=== PATIENT | female | born 1935 | race Caucasian/White ===

== ENCOUNTER 2016-12-21 18:41 | Emergency (ER) | payer MEDICARE, OTHER ==
[~2016-12-21] VITALS: Ht 167.6 cm; Wt 66.2 kg
[~2016-12-21 18:41] MED LIST: ALENDRONAT70 MG/75 M PO; AMITRIPTYLINE10 MG PO; ASPIRIN ADULT L81 M5 PO; ATIVAN0.5 M1 PO; BACTRIM DS1 TAB PO; BUSPIRONE10 MG PO; CARAFATE1 PO; COL100 PO; DIO160 PO; DIT5 PO; DOCUSATE CALCI100 MG PO; DOCUSATE SOD100 MG PO; DOCUSATE SODIU100 M1 PO; ELA10 PO; FAMOTIDINE20 MG; FLE10 PO; HYD25 PO; L20 PO; LAC PO; LEVAQUIN750 MG PO; LEVOTHYROXINE0.05 M2 PO; MACROBID100 MG PO; METOPROLOL SR50 MG PO; METOPROLOL TART25 M1 PO; METOPROLOL50 MG PO; MEV20 PO; MOTRIN800 MG; NAP500 PO; NEXIUM2.5 MG/Pa1; OYSCO 500500 MG PO; PENTOXIFYL XR400 MG PO; PRI20 PO; SIMVASTATIN20 MG PO; SYN25 PO; TRE400 PO; TYLENOL EXTRA500 M2; Z PO; ZOC20 PO; ZOFRAN ODT4 MG PO
[2016-12-21 20:35] LABS: CALCIUM 8.6 mg/dL (8.5-10.1); CHLORIDE SERUM 104 mmol/L (98-107); CREATININE SERUM 0.8 mg/dL (0.6-1.0); GLUCOSE SERUM 107 mg/dL (74-106); POTASSIUM SERUM 3.7 mmol/L (3.5-5.1); SODIUM SERUM 142 mmol/L (136-145)
[2016-12-21 20:39] LABS: ALBUMIN 3.4 g/dL (3.4-5.0); ALKALINE PHOSPHATASE 65 U/L (46-116); ALT/SGPT 22 U/L (14-59); AMYLASE 62 U/L (25-115); AST/SGOT 26 U/L (15-37); BILIRUBIN TOTAL 0.6 mg/dL (0.20-1.00); LIPASE 119 IU/L (73-393); TOTAL PROTEIN, SERUM 6.5 g/dL (6.4-8.2)
[2016-12-21 20:47] LABS: BASOPHIL % 0.1 % (0-2); PLATELET COUNT 234 x10^3mcL (130-400); RED CELL DISTRIBUTION WIDTH 13.8 % (11.5-14.5)
[2016-12-21 22:18] VITALS: BP 165/81
== END 2016-12-21 22:18 | disposition home or self-care (01) ==
LOC: ED 18:41
PROVIDERS: Emergency Medicine
DX: K56.7 Ileus, unspecified (principal); R11.10 Vomiting, unspecified; I10 Essential (primary) hypertension; Z88.0 Allergy status to penicillin; Z88.5 Allergy status to narcotic agent; Z85.030 Personal history of malignant carcinoid tumor of large intestine
CPT/HCPCS: 83880; J1885; J2405

== ENCOUNTER 2017-04-16 18:35 | Inpatient (IN) | payer MEDICARE, OTHER ==
[~2017-04-16] VITALS: Ht 152.4 cm; Wt 64.9 kg
[2017-04-16 20:41] LABS: CALCIUM 8.8 mg/dL (8.5-10.1); CARBON DIOXIDE 24.3 mmol/L (21-32); CHLORIDE SERUM 107 mmol/L (98-107); CREATININE SERUM 0.8 mg/dL (0.6-1.0); GLUCOSE SERUM 116 mg/dL (74-106); POTASSIUM SERUM 3.8 mmol/L (3.5-5.1); SODIUM SERUM 143 mmol/L (136-145)
[2017-04-16 20:44] LABS: BASOPHIL % 0.5 % (0-2); PLATELET COUNT 210 x10^3mcL (130-400); RED CELL DISTRIBUTION WIDTH 14.4 % (11.5-14.5)
[2017-04-16 20:46] LABS: ALBUMIN 3.4 g/dL (3.4-5.0); ALKALINE PHOSPHATASE 57 U/L (46-116); ALT/SGPT 23 U/L (14-59); AMYLASE 66 U/L (25-115); AST/SGOT 28 U/L (15-37); BILIRUBIN TOTAL 0.59 mg/dL (0.20-1.00); LIPASE 159 IU/L (73-393)
[2017-04-16 22:38] LABS: MAGNESIUM 2.1 mg/dL (1.8-2.4); PHOSPHOROUS 3.7 mg/dL (2.5-4.9)
[2017-04-16 22:41] LABS: CHOLESTEROL/HDL RATIO 2.8; T3 TOTAL 0.93 ng/mL
[2017-04-16 23:10] LABS: FREE T4 1.5 ng/dL (0.76-1.46); T4(THYROXINE) 10.4 ug/dL (4.7-13.3)
[2017-04-16 23:28] VITALS: BP 223/79
[2017-04-16 23:35] VITALS: Ht 152.4 cm; Wt 64.9 kg
[2017-04-16 23:58] LABS: microscopic required? YES; urine erythrocyte TRACE (NEGATIVE)
[2017-04-17 01:09] VITALS: BP 123/43
[2017-04-17] MEDS ORDERED: BACLOFEN10 MG PO (01:22)
[2017-04-17] MEDS ORDERED: HYDROCHLOROTHIA25 MG PO (01:23)
[2017-04-17] MEDS ORDERED: ESCITALOPRAM10 M1 PO (01:24)
[2017-04-17 05:35] VITALS: BP 133/52
[2017-04-17 09:43] VITALS: BP 122/40
[2017-04-17 14:25] VITALS: BP 157/49
[2017-04-17 17:18] VITALS: BP 180/57
[2017-04-17 21:48] VITALS: BP 172/63
[2017-04-18 01:00] VITALS: BP 147/63
[2017-04-18 06:07] VITALS: BP 170/61
[2017-04-18 07:06] LABS: BASOPHIL % 0.7 % (0-2); PLATELET COUNT 172 x10^3mcL (130-400); RED CELL DISTRIBUTION WIDTH 14.1 % (11.5-14.5)
[2017-04-18 07:25] LABS: CALCIUM 7.9 mg/dL (8.5-10.1); CARBON DIOXIDE 24.1 mmol/L (21-32); CHLORIDE SERUM 111 mmol/L (98-107); CREATININE SERUM 0.9 mg/dL (0.6-1.0); GLUCOSE SERUM 91 mg/dL (74-106); POTASSIUM SERUM 3.5 mmol/L (3.5-5.1); SODIUM SERUM 143 mmol/L (136-145)
[2017-04-18 09:54] VITALS: BP 134/49
[2017-04-18 13:20] VITALS: BP 158/58
[2017-04-18 17:05] VITALS: BP 164/53
[2017-04-18 21:42] VITALS: BP 154/71
[2017-04-19 06:01] VITALS: BP 177/75
[2017-04-19 06:35] LABS: CALCIUM 8.2 mg/dL (8.5-10.1); CARBON DIOXIDE 27.7 mmol/L (21-32); CHLORIDE SERUM 110 mmol/L (98-107); CREATININE SERUM 0.8 mg/dL (0.6-1.0); GLUCOSE SERUM 98 mg/dL (74-106); POTASSIUM SERUM 3.6 mmol/L (3.5-5.1); SODIUM SERUM 143 mmol/L (136-145)
[2017-04-19 07:34] LABS: BASOPHIL % 1.2 % (0-2); PLATELET COUNT 184 x10^3mcL (130-400)
[2017-04-19 08:55] VITALS: BP 126/48
[2017-04-19 13:32] VITALS: BP 126/65; BP 160/44
[2017-04-19] MEDS ORDERED: KEFLEX500 M1 PO (17:31)
[2017-04-19 17:46] VITALS: BP 160/44
[2017-04-19] MEDS ORDERED: MAC100 PO (18:10)
== END 2017-04-19 18:35 | disposition home or self-care (01) | DRG 247 ==
LOC: ED 18:35 → DU 21:43
PROVIDERS: Emergency Medicine; ADMIT Family Medicine
DX: K56.5 Intestinal adhesions [bands] with obstruction (postinfection) (principal); N17.0 Acute kidney failure with tubular necrosis; N39.0 Urinary tract infection, site not specified; I16.0 Hypertensive urgency; K21.9 Gastro-esophageal reflux disease without esophagitis; E03.9 Hypothyroidism, unspecified; F41.9 Anxiety disorder, unspecified; E78.5 Hyperlipidemia, unspecified; E66.3 Overweight; Z68.28 Body mass index [BMI] 28.0-28.9, adult; Z85.030 Personal history of malignant carcinoid tumor of large intestine; I10 Essential (primary) hypertension; Z88.0 Allergy status to penicillin; Z88.5 Allergy status to narcotic agent; Z91.018 Allergy to other foods; Z82.49 Family history of ischemic heart disease and other diseases of the circulatory system; Z82.3 Family history of stroke; F32.9 Major depressive disorder, single episode, unspecified; M81.0 Age-related osteoporosis without current pathological fracture; I73.9 Peripheral vascular disease, unspecified; Z98.42 Cataract extraction status, left eye; Z98.41 Cataract extraction status, right eye; K52.0 Gastroenteritis and colitis due to radiation
CPT/HCPCS: 83880; 84439; J0360; J1170; J1956; J2405; J3010; J7030; J7042

== ENCOUNTER 2017-05-20 17:36 | Emergency (ER) | payer OTHER ==
[~2017-05-20] VITALS: Ht 162.6 cm; Wt 64.4 kg
[~2017-05-20 17:36] MED LIST changes: +BACLOFEN10 MG PO; +ESCITALOPRAM10 M1 PO; +HYDROCHLOROTHIA25 MG PO; +KEFLEX500 M1 PO; +MAC100 PO
[2017-05-20 18:36] LABS: BASOPHIL % 1.4 % (0-2); PLATELET COUNT 237 x10^3mcL (130-400)
[2017-05-20 18:37] LABS: RED CELL DISTRIBUTION WIDTH 14.9 % (11.5-14.5)
[2017-05-20 18:55] LABS: CALCIUM 8.5 mg/dL (8.5-10.1); CARBON DIOXIDE 25.2 mmol/L (21-32); CHLORIDE SERUM 104 mmol/L (98-107); GLUCOSE SERUM 107 mg/dL (74-106); POTASSIUM SERUM 4.2 mmol/L (3.5-5.1); SODIUM SERUM 139 mmol/L (136-145)
[2017-05-20 18:59] LABS: ALBUMIN 3.4 g/dL (3.4-5.0); ALKALINE PHOSPHATASE 49 U/L (46-116); ALT/SGPT 22 U/L (14-59); AMYLASE 70 U/L (25-115); AST/SGOT 30 U/L (15-37); BILIRUBIN TOTAL 0.31 mg/dL (0.20-1.00); LIPASE 178 IU/L (73-393); TOTAL PROTEIN, SERUM 6.7 g/dL (6.4-8.2)
[2017-05-20 19:58] VITALS: BP 148/62
== END 2017-05-20 19:58 | disposition home or self-care (01) ==
LOC: ED 17:36
PROVIDERS: Emergency Medicine
DX: R10.13 Epigastric pain (principal); Z88.0 Allergy status to penicillin; Z88.5 Allergy status to narcotic agent; I10 Essential (primary) hypertension; Z85.038 Personal history of other malignant neoplasm of large intestine
CPT/HCPCS: J1885

== ENCOUNTER 2017-07-25 03:58 | Inpatient (IN) | payer MEDICARE, OTHER ==
[~2017-07-25] VITALS: Ht 157.5 cm; Wt 59.6 kg
[2017-07-25 04:37] LABS: CALCIUM 9.1 mg/dL (8.5-10.1); CARBON DIOXIDE 26.1 mmol/L (21-32); CHLORIDE SERUM 99 mmol/L (98-107); CREATININE SERUM 1.1 mg/dL (0.6-1.0); GLUCOSE SERUM 188 mg/dL (74-106); POTASSIUM SERUM 3.1 mmol/L (3.5-5.1); SODIUM SERUM 136 mmol/L (136-145)
[2017-07-25 04:51] LABS: ALKALINE PHOSPHATASE 64 U/L (46-116); ALT/SGPT 23 U/L (14-59); AST/SGOT 28 U/L (15-37); BILIRUBIN TOTAL 0.88 mg/dL (0.20-1.00); FREE T4 1.45 ng/dL (0.76-1.46)
[2017-07-25 04:57] LABS: BASOPHIL % 0.1 % (0-2); PLATELET COUNT 265 x10^3mcL (130-400); RED CELL DISTRIBUTION WIDTH 13.8 % (11.5-14.5)
[2017-07-25 07:13] LABS: PHOSPHOROUS 2.9 mg/dL (2.5-4.9)
[2017-07-25 07:23] LABS: FREE T4 1.47 ng/dL (0.76-1.46); FREE THYROXINE INDEX 4.1 ug/dL (1.4-4.5); T4(THYROXINE) 12.1 ug/dL (4.7-13.3)
[2017-07-25 07:32] LABS: T3 TOTAL 1.04 ng/mL
[2017-07-25 12:30] VITALS: BP 120/46
[2017-07-25 16:15] LABS: UA SPECIFIC GRAVITY 1.025 (1.005-1.035); microscopic required? YES; urine erythrocyte 2+ (NEGATIVE)
[2017-07-25 16:27] LABS: AMPHETAMINE QUAL UR NONE DETECTED (NEG <=1000)
[2017-07-25 17:30] VITALS: BP 136/60
[2017-07-25 17:41] VITALS: BP 155/72
[2017-07-25 21:45] VITALS: BP 101/65
[2017-07-26 05:50] VITALS: BP 143/66
[2017-07-26 09:26] VITALS: BP 139/64
[2017-07-26 12:59] VITALS: BP 149/54
[2017-07-26 13:59] LABS: CALCIUM 8.8 mg/dL (8.5-10.1); CARBON DIOXIDE 26.4 mmol/L (21-32); CHLORIDE SERUM 107 mmol/L (98-107); GLUCOSE SERUM 129 mg/dL (74-106); POTASSIUM SERUM 4.5 mmol/L (3.5-5.1); SODIUM SERUM 140 mmol/L (136-145)
[2017-07-26 17:34] VITALS: BP 136/48
[2017-07-26 21:44] VITALS: BP 136/55
[2017-07-27 06:03] VITALS: BP 165/51
[2017-07-27 06:11] LABS: CALCIUM 8.6 mg/dL (8.5-10.1); CARBON DIOXIDE 29.1 mmol/L (21-32); CHLORIDE SERUM 108 mmol/L (98-107); CREATININE SERUM 0.8 mg/dL (0.6-1.0); GLUCOSE SERUM 93 mg/dL (74-106); POTASSIUM SERUM 3.8 mmol/L (3.5-5.1); SODIUM SERUM 142 mmol/L (136-145)
[2017-07-27 06:13] LABS: BASOPHIL % 0.4 % (0-2); PLATELET COUNT 201 x10^3mcL (130-400); RED CELL DISTRIBUTION WIDTH 13.8 % (11.5-14.5)
[2017-07-27 08:30] VITALS: BP 151/52
[2017-07-27] MEDS ORDERED: KEF500 PO (10:49)
[2017-07-27 12:48] VITALS: BP 151/52
[2017-07-27 13:06] VITALS: BP 154/45
[2017-07-27 14:23] VITALS: BP 150/53
== END 2017-07-27 16:06 | disposition home health service (06) | DRG 304 ==
LOC: ED 03:58 → DU 06:35
PROVIDERS: Emergency Medicine; Family Medicine Sports Medicine; ADMIT Family Medicine
DX: I16.0 Hypertensive urgency (principal); N17.0 Acute kidney failure with tubular necrosis; E87.2 Acidosis; N39.0 Urinary tract infection, site not specified; R31.9 Hematuria, unspecified; T46.5X6A Underdosing of other antihypertensive drugs, initial encounter; E04.1 Nontoxic single thyroid nodule; E03.9 Hypothyroidism, unspecified; E87.6 Hypokalemia; Z91.138 Patient's unintentional underdosing of medication regimen for other reason; Y92.009 Unspecified place in unspecified non-institutional (private) residence as the place of occurrence of the external cause; Z85.038 Personal history of other malignant neoplasm of large intestine
CPT/HCPCS: 83880; 84439; 97110-GP; 97116-GP; 97530-GP; J0696; J1170; J7030; Q0092

== ENCOUNTER 2017-08-03 21:57 | Inpatient (IN) | payer OTHER, MEDICARE ==
[~2017-08-03] VITALS: Ht 160 cm; Wt 65.9 kg
[~2017-08-03 21:57] MED LIST changes: -FAMOTIDINE20 MG; +KEF500 PO; +PEPCID20 MG
[2017-08-03 22:46] LABS: UA SPECIFIC GRAVITY 1.015 (1.005-1.035); microscopic required? YES; urine erythrocyte NEGATIVE (NEGATIVE)
[2017-08-03 22:57] LABS: PLATELET COUNT 198 x10^3mcL (130-400); RED CELL DISTRIBUTION WIDTH 13.8 % (11.5-14.5)
[2017-08-03 23:00] LABS: BASOPHIL % 2.2 % (0-2)
[2017-08-03 23:24] LABS: CALCIUM 9.1 mg/dL (8.5-10.1); CARBON DIOXIDE 24.8 mmol/L (21-32); CHLORIDE SERUM 105 mmol/L (98-107); GLUCOSE SERUM 126 mg/dL (74-106); POTASSIUM SERUM 4.1 mmol/L (3.5-5.1); SODIUM SERUM 138 mmol/L (136-145)
[2017-08-03 23:31] LABS: ALBUMIN 3.6 g/dL (3.4-5.0); ALKALINE PHOSPHATASE 53 U/L (46-116); ALT/SGPT 22 U/L (14-59); AMYLASE 72 U/L (25-115); AST/SGOT 23 U/L (15-37); BILIRUBIN TOTAL 0.59 mg/dL (0.20-1.00); LIPASE 182 IU/L (73-393); TOTAL PROTEIN, SERUM 7.2 g/dL (6.4-8.2)
[2017-08-04 04:03] LABS: MAGNESIUM 2.4 mg/dL (1.8-2.4); PHOSPHOROUS 3.7 mg/dL (2.5-4.9)
[2017-08-04 04:05] LABS: CHOLESTEROL/HDL RATIO 3.3
[2017-08-04 04:10] VITALS: BP 164/62
[2017-08-04 04:24] VITALS: BP 164/62
[2017-08-04 04:39] LABS: FREE T4 1.46 ng/dL (0.76-1.46); FREE THYROXINE INDEX 3.7 ug/dL (1.4-4.5); T4(THYROXINE) 9.9 ug/dL (4.7-13.3)
[2017-08-04 06:43] LABS: T3 TOTAL 1.13 ng/mL
[2017-08-04 09:37] VITALS: Ht 160 cm; Wt 65.9 kg
[2017-08-04 11:50] VITALS: BP 165/55
[2017-08-04 14:00] VITALS: BP 163/54
[2017-08-04 17:25] VITALS: BP 159/61
[2017-08-04 20:41] VITALS: BP 142/61
[2017-08-05 05:21] VITALS: BP 148/58
[2017-08-05 07:16] LABS: BASOPHIL % 0.4 % (0-2); PLATELET COUNT 188 x10^3mcL (130-400); RED CELL DISTRIBUTION WIDTH 13.9 % (11.5-14.5)
[2017-08-05 07:40] LABS: CALCIUM 8.2 mg/dL (8.5-10.1); CARBON DIOXIDE 25.4 mmol/L (21-32); CHLORIDE SERUM 107 mmol/L (98-107); CREATININE SERUM 0.8 mg/dL (0.6-1.0); GLUCOSE SERUM 88 mg/dL (74-106); POTASSIUM SERUM 3.6 mmol/L (3.5-5.1); SODIUM SERUM 141 mmol/L (136-145)
[2017-08-05 09:38] VITALS: BP 127/46
[2017-08-05 14:06] VITALS: BP 145/46
[2017-08-05] MEDS ORDERED: NOR5 PO (14:24)
[2017-08-05] MEDS ORDERED: SIMETHICONE80 MG CH (14:26)
[2017-08-05] MEDS ORDERED: MOM PO (14:26)
[2017-08-05] MEDS ORDERED: COL100 PO (14:26)
[2017-08-05] MEDS ORDERED: LAC PO (14:32)
[2017-08-05] MEDS ORDERED: LEVAQUIN750 MG PO (14:32)
[2017-08-05 14:51] VITALS: BP 145/46
== END 2017-08-05 16:05 | disposition home health service (06) | DRG 247 ==
LOC: ED 21:57 → DU 08-04 02:43
PROVIDERS: Emergency Medicine; ADMIT Family Medicine
DX: K56.41 Fecal impaction (principal); N17.0 Acute kidney failure with tubular necrosis; G93.41 Metabolic encephalopathy; I10 Essential (primary) hypertension; F32.9 Major depressive disorder, single episode, unspecified; E03.9 Hypothyroidism, unspecified; F41.9 Anxiety disorder, unspecified; K21.9 Gastro-esophageal reflux disease without esophagitis; Z53.29 Procedure and treatment not carried out because of patient's decision for other reasons; R73.03 Prediabetes; I16.0 Hypertensive urgency; E78.5 Hyperlipidemia, unspecified; N39.0 Urinary tract infection, site not specified; M54.5 Low back pain; Z88.5 Allergy status to narcotic agent; Z88.0 Allergy status to penicillin; Z91.018 Allergy to other foods; Z82.49 Family history of ischemic heart disease and other diseases of the circulatory system; Z82.3 Family history of stroke; Z85.038 Personal history of other malignant neoplasm of large intestine; Z79.899 Other long term (current) drug therapy
CPT/HCPCS: 82962; 83880; 84439; J0696; J1885; J2765; J7030; Q0092; Q0162; Q9967

== ENCOUNTER 2017-10-07 17:17 | Inpatient (IN) | payer OTHER, MEDICARE ==
[~2017-10-07] VITALS: Ht 160 cm; Wt 65.4 kg
[~2017-10-07 17:17] MED LIST changes: +MOM PO; +NOR5 PO; +SIMETHICONE80 MG CH
[2017-10-07 18:29] LABS: BASOPHIL % 0.5 % (0-2); PLATELET COUNT 248 x10^3mcL (130-400); RED CELL DISTRIBUTION WIDTH 14.4 % (11.5-14.5)
[2017-10-07 18:33] LABS: CALCIUM 9.1 mg/dL (8.5-10.1); CARBON DIOXIDE 25.1 mmol/L (21-32); CHLORIDE SERUM 102 mmol/L (98-107); GLUCOSE SERUM 119 mg/dL (74-106); POTASSIUM SERUM 3.6 mmol/L (3.5-5.1); SODIUM SERUM 138 mmol/L (136-145)
[2017-10-07 18:40] LABS: ALBUMIN 3.7 g/dL (3.4-5.0); ALKALINE PHOSPHATASE 55 U/L (46-116); ALT/SGPT 17 U/L (14-59); AST/SGOT 19 U/L (15-37); BILIRUBIN TOTAL 0.49 mg/dL (0.20-1.00); LIPASE 180 IU/L (73-393); TOTAL PROTEIN, SERUM 7.1 g/dL (6.4-8.2)
[2017-10-07] MEDS ORDERED: DIOVAN320 MG PO (18:57)
[2017-10-07] MEDS ORDERED: APAP/HYDROCODON1 T15 PO (18:58)
[2017-10-07] MEDS ORDERED: LEVOTHYROXIN0.075 M2 PO (18:58)
[2017-10-07] MEDS ORDERED: BACLOFEN10 MG PO (18:59)
[2017-10-07] MEDS ORDERED: NEXIUM40 MG PO (18:59)
[2017-10-07] MEDS ORDERED: NOR5 PO (18:59)
[2017-10-07 21:58] VITALS: BP 207/77
[2017-10-08 00:57] VITALS: BP 178/61
[2017-10-08 01:12] LABS: CHOLESTEROL/HDL RATIO 3.5; MAGNESIUM 2.5 mg/dL (1.8-2.4); PHOSPHOROUS 3.4 mg/dL (2.5-4.9)
[2017-10-08 01:23] LABS: FREE T4 1.51 ng/dL (0.76-1.46); FREE THYROXINE INDEX 4.6 ug/dL (1.4-4.5); T4(THYROXINE) 11.2 ug/dL (4.7-13.3)
[2017-10-08 01:56] LABS: T3 TOTAL 1.02 ng/mL
[2017-10-08 04:51] VITALS: BP 101/59
[2017-10-08 06:20] VITALS: BP 162/56
[2017-10-08 07:13] LABS: CALCIUM 8.1 mg/dL (8.5-10.1); CARBON DIOXIDE 25.7 mmol/L (21-32); CHLORIDE SERUM 110 mmol/L (98-107); CREATININE SERUM 0.7 mg/dL (0.6-1.0); GLUCOSE SERUM 91 mg/dL (74-106); POTASSIUM SERUM 3.9 mmol/L (3.5-5.1); SODIUM SERUM 142 mmol/L (136-145)
[2017-10-08 08:07] LABS: BASOPHIL % 0 % (0-2); PLATELET COUNT 174 x10^3mcL (130-400); RED CELL DISTRIBUTION WIDTH 14.8 % (11.5-14.5)
[2017-10-08 08:20] VITALS: BP 162/63
[2017-10-08 16:55] VITALS: BP 173/58
[2017-10-08 20:55] VITALS: BP 154/55
[2017-10-09 05:09] VITALS: BP 159/54
[2017-10-09 06:44] LABS: CALCIUM 8.4 mg/dL (8.5-10.1); CARBON DIOXIDE 27.3 mmol/L (21-32); CHLORIDE SERUM 107 mmol/L (98-107); CREATININE SERUM 0.7 mg/dL (0.6-1.0); GLUCOSE SERUM 79 mg/dL (74-106); MAGNESIUM 2.1 mg/dL (1.8-2.4); PHOSPHOROUS 3.4 mg/dL (2.5-4.9); POTASSIUM SERUM 3.8 mmol/L (3.5-5.1); SODIUM SERUM 141 mmol/L (136-145)
[2017-10-09 06:45] LABS: BASOPHIL % 0.4 % (0-2); PLATELET COUNT 185 x10^3mcL (130-400); RED CELL DISTRIBUTION WIDTH 14.5 % (11.5-14.5)
[2017-10-09 09:39] VITALS: BP 146/45
[2017-10-09 09:40] VITALS: BP 149/44
[2017-10-09 12:55] VITALS: BP 143/54
[2017-10-09 16:45] VITALS: BP 151/55
[2017-10-09 21:28] VITALS: BP 125/62
[2017-10-10 06:02] VITALS: BP 153/55
[2017-10-10 06:28] LABS: CALCIUM 8.9 mg/dL (8.5-10.1); CARBON DIOXIDE 30.2 mmol/L (21-32); CHLORIDE SERUM 110 mmol/L (98-107); CREATININE SERUM 0.8 mg/dL (0.6-1.0); GLUCOSE SERUM 102 mg/dL (74-106); MAGNESIUM 2.2 mg/dL (1.8-2.4); PHOSPHOROUS 4.1 mg/dL (2.5-4.9); POTASSIUM SERUM 4.5 mmol/L (3.5-5.1); SODIUM SERUM 148 mmol/L (136-145)
[2017-10-10 06:48] LABS: BASOPHIL % 0.4 % (0-2); PLATELET COUNT 211 x10^3mcL (130-400); RED CELL DISTRIBUTION WIDTH 14.5 % (11.5-14.5)
[2017-10-10] MEDS ORDERED: FLA500 PO (11:56)
[2017-10-10] MEDS ORDERED: BIA500 PO (11:56)
[2017-10-10] MEDS ORDERED: NOR10 PO (11:57)
[2017-10-10] MEDS ORDERED: TOP50 PO (11:57)
[2017-10-10] MEDS ORDERED: PRI20 PO (11:59)
[2017-10-10] MEDS ORDERED: LINZESS145 MC1 PO (12:05)
[2017-10-10 12:50] VITALS: BP 132/45
[2017-10-10 13:28] VITALS: BP 132/45
== END 2017-10-10 14:58 | disposition home or self-care (01) | DRG 241 ==
LOC: ED 17:17 → DU 21:27
PROVIDERS: Emergency Medicine; Family Medicine; Internal Medicine Gastroenterology
PROC: 0DB78ZX Excision of Stomach, Pylorus, Via Natural or Artificial Opening Endoscopic, Diagnostic (ICD-10-PCS; principal; 2017-10-09 09:30)
PROC: 0DJD8ZZ Inspection of Lower Intestinal Tract, Via Natural or Artificial Opening Endoscopic (ICD-10-PCS; 2017-10-10)
DX: K29.60 Other gastritis without bleeding (principal); E87.0 Hyperosmolality and hypernatremia; K56.7 Ileus, unspecified; E83.41 Hypermagnesemia; E87.8 Other disorders of electrolyte and fluid balance, not elsewhere classified; E83.42 Hypomagnesemia; I10 Essential (primary) hypertension; E78.5 Hyperlipidemia, unspecified; E03.9 Hypothyroidism, unspecified; M54.5 Low back pain; F32.9 Major depressive disorder, single episode, unspecified; I16.0 Hypertensive urgency; G89.29 Other chronic pain; Z53.29 Procedure and treatment not carried out because of patient's decision for other reasons; F41.9 Anxiety disorder, unspecified; Z66 Do not resuscitate; B96.81 Helicobacter pylori [H. pylori] as the cause of diseases classified elsewhere; K21.9 Gastro-esophageal reflux disease without esophagitis; Z68.25 Body mass index [BMI] 25.0-25.9, adult; Z85.030 Personal history of malignant carcinoid tumor of large intestine; Z88.0 Allergy status to penicillin; Z88.5 Allergy status to narcotic agent; Z91.018 Allergy to other foods; Z79.899 Other long term (current) drug therapy; Z82.49 Family history of ischemic heart disease and other diseases of the circulatory system; Z82.3 Family history of stroke
CPT/HCPCS: 43235; 45378; 83880; 84439; C9113; J1170; J1200; J1610; J1940; J2250; J2310; J2405; J3010; J3490; J7030; J7040; Q0092

== ENCOUNTER 2017-10-25 01:24 | Inpatient (IN) | payer OTHER, MEDICARE ==
[~2017-10-25] VITALS: Ht 160 cm; Wt 60.5 kg
[~2017-10-25 01:24] MED LIST changes: +APAP/HYDROCODON1 T15 PO; +BIA500 PO; +DIOVAN320 MG PO; +FLA500 PO; +LEVOTHYROXIN0.075 M2 PO; +LINZESS145 MC1 PO; +NEXIUM40 MG PO; +NOR10 PO; +TOP50 PO
[2017-10-25 01:34] VITALS: Ht 160 cm; Wt 60.5 kg
[2017-10-25 02:44] LABS: ALBUMIN 3.5 g/dL (3.4-5.0); ALKALINE PHOSPHATASE 44 U/L (46-116); ALT/SGPT 22 U/L (14-59); AMYLASE 67 U/L (25-115); AST/SGOT 27 U/L (15-37); BILIRUBIN TOTAL 0.51 mg/dL (0.20-1.00); CALCIUM 8.9 mg/dL (8.5-10.1); CARBON DIOXIDE 18.6 mmol/L (21-32); CHLORIDE SERUM 102 mmol/L (98-107); GLUCOSE SERUM 210 mg/dL (74-106); LIPASE 204 IU/L (73-393); SODIUM SERUM 137 mmol/L (136-145); TOTAL PROTEIN, SERUM 6.7 g/dL (6.4-8.2)
[2017-10-25 02:51] LABS: POTASSIUM SERUM 2.9 mmol/L (3.5-5.1)
[2017-10-25 02:53] LABS: BASOPHIL % 0.2 % (0-2); PLATELET COUNT 279 x10^3mcL (130-400); RED CELL DISTRIBUTION WIDTH 14.5 % (11.5-14.5)
[2017-10-25 04:46] LABS: microscopic required? YES; urine erythrocyte 3+ (NEGATIVE)
[2017-10-25 04:53] LABS: MAGNESIUM 1.6 mg/dL (1.8-2.4); PHOSPHOROUS 1.5 mg/dL (2.5-4.9)
[2017-10-25 05:01] LABS: CHOLESTEROL/HDL RATIO 2.7
[2017-10-25 05:02] LABS: T3 TOTAL 1.24 ng/mL
[2017-10-25 05:03] LABS: FREE T4 1.87 ng/dL (0.76-1.46); FREE THYROXINE INDEX 4.4 ug/dL (1.4-4.5); T4(THYROXINE) 11.9 ug/dL (4.7-13.3)
[2017-10-25 05:26] VITALS: BP 151/155
[2017-10-25 05:49] VITALS: BP 151/55
[2017-10-25 10:28] VITALS: BP 121/59
[2017-10-25 12:16] VITALS: BP 107/40
[2017-10-25 13:33] LABS: CALCIUM 8.2 mg/dL (8.5-10.1); CARBON DIOXIDE 26.3 mmol/L (21-32); CHLORIDE SERUM 107 mmol/L (98-107); CREATININE SERUM 0.9 mg/dL (0.6-1.0); GLUCOSE SERUM 128 mg/dL (74-106); POTASSIUM SERUM 4.1 mmol/L (3.5-5.1); SODIUM SERUM 142 mmol/L (136-145)
[2017-10-25 16:57] VITALS: BP 116/42
[2017-10-25 21:14] VITALS: BP 133/61
[2017-10-26] VITALS (7 sets, daily range): BP systolic 113–138; BP diastolic 47–67
[2017-10-26 07:11] LABS: PLATELET COUNT 204 x10^3mcL (130-400)
[2017-10-26 07:35] LABS: BASOPHIL % 2.4 % (0-2); RED CELL DISTRIBUTION WIDTH 15.4 % (11.5-14.5)
[2017-10-26 08:00] LABS: CALCIUM 8.1 mg/dL (8.5-10.1); CHLORIDE SERUM 108 mmol/L (98-107); CREATININE SERUM 0.9 mg/dL (0.6-1.0); GLUCOSE SERUM 103 mg/dL (74-106); POTASSIUM SERUM 3.6 mmol/L (3.5-5.1); SODIUM SERUM 141 mmol/L (136-145)
[2017-10-27 04:21] VITALS: BP 132/51
[2017-10-27 07:43] LABS: CALCIUM 7.8 mg/dL (8.5-10.1); CARBON DIOXIDE 22.2 mmol/L (21-32); CHLORIDE SERUM 108 mmol/L (98-107); CREATININE SERUM 0.8 mg/dL (0.6-1.0); GLUCOSE SERUM 94 mg/dL (74-106); POTASSIUM SERUM 3.2 mmol/L (3.5-5.1); SODIUM SERUM 141 mmol/L (136-145)
[2017-10-27 07:49] LABS: BASOPHIL % 0.5 % (0-2); PLATELET COUNT 198 x10^3mcL (130-400)
[2017-10-27 07:52] LABS: RED CELL DISTRIBUTION WIDTH 14.6 % (11.5-14.5)
[2017-10-27 09:45] VITALS: BP 124/53
[2017-10-27 13:00] VITALS: BP 131/49
[2017-10-27] MEDS ORDERED: SEN PO (13:06)
[2017-10-27] MEDS ORDERED: KLOR-CON M2020 MEQ PO (13:09)
[2017-10-27] MEDS ORDERED: BEN10 PO (13:17)
[2017-10-27 15:25] LABS: MAGNESIUM 2.1 mg/dL (1.8-2.4); PHOSPHOROUS 3.1 mg/dL (2.5-4.9)
[2017-10-27 15:55] VITALS: BP 131/49
== END 2017-10-27 16:45 | disposition home or self-care (01) | DRG 247 ==
LOC: ED 01:24 → DU 04:10
PROVIDERS: Emergency Medicine; Family Medicine; Family Medicine Sports Medicine
DX: K56.7 Ileus, unspecified (principal); G90.8 Other disorders of autonomic nervous system; E86.0 Dehydration; R31.9 Hematuria, unspecified; Z66 Do not resuscitate; M54.9 Dorsalgia, unspecified; G89.29 Other chronic pain; I10 Essential (primary) hypertension; E87.6 Hypokalemia; K21.9 Gastro-esophageal reflux disease without esophagitis; E03.9 Hypothyroidism, unspecified; F41.9 Anxiety disorder, unspecified; Z85.038 Personal history of other malignant neoplasm of large intestine; Z88.0 Allergy status to penicillin; Z88.5 Allergy status to narcotic agent; Z91.018 Allergy to other foods; Z98.891 History of uterine scar from previous surgery; Z82.3 Family history of stroke; Z82.49 Family history of ischemic heart disease and other diseases of the circulatory system
CPT/HCPCS: 83880; 84439; 87046; 87046-59; 97110-GP; 97116-GP; 97530-GP; J1885; J1956; J2060; J2405; J3475; J3480; J7030; Q0092; Q9967

== ENCOUNTER → 2017-12-25 | Outpatient (CLI) | payer MEDICARE, OTHER ==
[~2017-12-25] MED LIST changes: +BEN10 PO; +KLOR-CON M2020 MEQ PO; +SEN PO
[2017-12-25 13:05] LABS: FREE T4 1.11 ng/dL (0.76-1.46); FREE THYROXINE INDEX 3.2 ug/dL (1.4-4.5); T4(THYROXINE) 9.6 ug/dL (4.7-13.3)
[2017-12-25 13:14] LABS: T3 TOTAL 0.88 ng/mL
== END | disposition home or self-care (01) ==
LOC: LB 11:50
PROVIDERS: Internal Medicine
DX: M81.0 Age-related osteoporosis without current pathological fracture (principal)
CPT/HCPCS: 84439

== ENCOUNTER 2017-12-30 12:56 | Inpatient (IN) | payer OTHER, MEDICARE ==
[~2017-12-30] VITALS: Ht 160 cm; Wt 60.8 kg
[2017-12-30 15:27] LABS: BASOPHIL % 0.1 % (0-2); PLATELET COUNT 241 x10^3mcL (130-400); RED CELL DISTRIBUTION WIDTH 13.6 % (11.5-14.5)
[2017-12-30 15:32] LABS: CALCIUM 9.1 mg/dL (8.5-10.1); CARBON DIOXIDE 21.8 mmol/L (21-32); CHLORIDE SERUM 103 mmol/L (98-107); CREATININE SERUM 0.8 mg/dL (0.6-1.0); GLUCOSE SERUM 146 mg/dL (74-106); POTASSIUM SERUM 3.5 mmol/L (3.5-5.1); SODIUM SERUM 139 mmol/L (136-145)
[2017-12-30 15:32] LABS: UA SPECIFIC GRAVITY 1.015 (1.005-1.035); microscopic required? YES; urine erythrocyte TRACE (NEGATIVE)
[2017-12-30 15:36] LABS: ALBUMIN 3.9 g/dL (3.4-5.0); ALKALINE PHOSPHATASE 58 U/L (46-116); ALT/SGPT 20 U/L (14-59); AMYLASE 65 U/L (25-115); AST/SGOT 25 U/L (15-37); BILIRUBIN TOTAL 0.7 mg/dL (0.20-1.00); LIPASE 119 IU/L (73-393)
[2017-12-30 15:37] LABS: CHOLESTEROL 240 mg/dL (<200); HDL CHOLESTEROL 82 mg/dL (40-60)
[2017-12-30 16:14] LABS: PHOSPHOROUS 2.6 mg/dL (2.5-4.9)
[2017-12-30 16:15] LABS: CHOLESTEROL/HDL RATIO 3.1
[2017-12-30 21:57] VITALS: BP 143/92
[2017-12-31 05:57] VITALS: BP 138/47
[2017-12-31 06:26] LABS: BASOPHIL % 0.3 % (0-2); PLATELET COUNT 191 x10^3mcL (130-400); RED CELL DISTRIBUTION WIDTH 14.4 % (11.5-14.5)
[2017-12-31 06:41] LABS: CALCIUM 7.7 mg/dL (8.5-10.1); CARBON DIOXIDE 25.8 mmol/L (21-32); CHLORIDE SERUM 106 mmol/L (98-107); GLUCOSE SERUM 98 mg/dL (74-106); POTASSIUM SERUM 3.5 mmol/L (3.5-5.1); SODIUM SERUM 140 mmol/L (136-145)
[2017-12-31 10:31] VITALS: BP 133/39
[2017-12-31 12:36] VITALS: BP 153/48
[2017-12-31 17:42] VITALS: BP 150/52
[2017-12-31 19:43] VITALS: BP 123/43
[2018-01-01 05:26] VITALS: BP 141/50
[2018-01-01 06:49] LABS: BASOPHIL % 0.6 % (0-2); PLATELET COUNT 178 x10^3mcL (130-400); RED CELL DISTRIBUTION WIDTH 13.9 % (11.5-14.5)
[2018-01-01 06:56] LABS: CARBON DIOXIDE 26.6 mmol/L (21-32); CHLORIDE SERUM 107 mmol/L (98-107); CREATININE SERUM 0.9 mg/dL (0.6-1.0); GLUCOSE SERUM 93 mg/dL (74-106); POTASSIUM SERUM 3.6 mmol/L (3.5-5.1); SODIUM SERUM 141 mmol/L (136-145)
[2018-01-01 09:44] VITALS: BP 121/47
[2018-01-01] MEDS ORDERED: LEVAQUIN750 MG PO (10:23)
[2018-01-01] MEDS ORDERED: BD LACTINEX1.4 MG PO (10:23)
[2018-01-01] MEDS ORDERED: CLINDAMYCIN HC300 MG PO (10:23)
[2018-01-01 13:02] VITALS: BP 138/51
== END 2018-01-01 18:00 | disposition home health service (06) | DRG 247 ==
LOC: ED 12:56 → DU 16:03
PROVIDERS: Emergency Medicine; Family Medicine
DX: K56.690 Other partial intestinal obstruction (principal); J69.0 Pneumonitis due to inhalation of food and vomit; N17.0 Acute kidney failure with tubular necrosis; N39.0 Urinary tract infection, site not specified; I10 Essential (primary) hypertension; E78.2 Mixed hyperlipidemia; F32.9 Major depressive disorder, single episode, unspecified; D64.9 Anemia, unspecified; D63.8 Anemia in other chronic diseases classified elsewhere; N13.2 Hydronephrosis with renal and ureteral calculous obstruction; E03.9 Hypothyroidism, unspecified; K21.9 Gastro-esophageal reflux disease without esophagitis; F41.9 Anxiety disorder, unspecified; K29.70 Gastritis, unspecified, without bleeding; K58.9 Irritable bowel syndrome, unspecified; Z88.5 Allergy status to narcotic agent; Z88.0 Allergy status to penicillin; Z91.018 Allergy to other foods; Z85.41 Personal history of malignant neoplasm of cervix uteri; Z85.038 Personal history of other malignant neoplasm of large intestine; Z98.891 History of uterine scar from previous surgery; Z82.49 Family history of ischemic heart disease and other diseases of the circulatory system; Z82.3 Family history of stroke
CPT/HCPCS: 82962; 83880; 84439; 97110-GP; 97116-GP; 97530-GP; J1956; J2405; J3010; J3490; J7030; Q0092; Q9967

== ENCOUNTER 2018-02-08 09:57 | Inpatient (IN) | payer OTHER, MEDICARE ==
[2018-02-08] VITALS (14 sets, daily range): BP systolic 105–226; BP diastolic 45–96; Ht 160 cm; Wt 72.3 kg
[~2018-02-08] VITALS: Ht 160 cm; Wt 72.3 kg
[~2018-02-08 09:57] MED LIST changes: +BD LACTINEX1.4 MG PO; +CLINDAMYCIN HC300 MG PO
[2018-02-08 10:51] LABS: BASOPHIL % 0.3 % (0-2); PLATELET COUNT 284 x10^3mcL (130-400); RED CELL DISTRIBUTION WIDTH 13.6 % (11.5-14.5)
[2018-02-08 10:56] LABS: CALCIUM 9.4 mg/dL (8.5-10.1); CARBON DIOXIDE 24.8 mmol/L (21-32); CHLORIDE SERUM 106 mmol/L (98-107); GLUCOSE SERUM 127 mg/dL (74-106); POTASSIUM SERUM 3.8 mmol/L (3.5-5.1); SODIUM SERUM 144 mmol/L (136-145)
[2018-02-08 11:01] LABS: ALBUMIN 3.8 g/dL (3.4-5.0); ALKALINE PHOSPHATASE 60 U/L (46-116); ALT/SGPT 18 U/L (14-59); AST/SGOT 23 U/L (15-37); BILIRUBIN TOTAL 0.78 mg/dL (0.20-1.00)
[2018-02-08 11:25] LABS: UA SPECIFIC GRAVITY 1.015 (1.005-1.035); microscopic required? YES; urine erythrocyte 1+ (NEGATIVE)
[2018-02-08 13:11] LABS: T3 TOTAL 1.06 ng/mL
[2018-02-08 13:45] LABS: MAGNESIUM 2.2 mg/dL (1.8-2.4); PHOSPHOROUS 3.5 mg/dL (2.5-4.9)
[2018-02-08 13:51] LABS: CHOLESTEROL/HDL RATIO 3.4
[2018-02-08 13:59] LABS: FREE T4 1.34 ng/dL (0.76-1.46); FREE THYROXINE INDEX 3.9 ug/dL (1.4-4.5); T4(THYROXINE) 10.7 ug/dL (4.7-13.3)
[2018-02-09 05:20] VITALS: BP 116/49
[2018-02-09 06:56] LABS: BASOPHIL % 0.3 % (0-2); CALCIUM 8.2 mg/dL (8.5-10.1); CHLORIDE SERUM 107 mmol/L (98-107); CREATININE SERUM 1.7 mg/dL (0.6-1.0); GLUCOSE SERUM 107 mg/dL (74-106); PLATELET COUNT 248 x10^3mcL (130-400); RED CELL DISTRIBUTION WIDTH 14.3 % (11.5-14.5); SODIUM SERUM 146 mmol/L (136-145)
[2018-02-09 07:06] LABS: MAGNESIUM 2.5 mg/dL (1.8-2.4); PHOSPHOROUS 6.1 mg/dL (2.5-4.9)
[2018-02-09 09:13] VITALS: BP 129/48
[2018-02-09 13:17] VITALS: BP 133/52
[2018-02-09 16:35] VITALS: BP 157/45
[2018-02-09 20:22] VITALS: BP 153/53
[2018-02-10 06:42] VITALS: BP 155/43
[2018-02-10 07:03] LABS: BASOPHIL % 0.5 % (0-2); PLATELET COUNT 223 x10^3mcL (130-400); RED CELL DISTRIBUTION WIDTH 13.8 % (11.5-14.5)
[2018-02-10 07:28] LABS: CALCIUM 8.4 mg/dL (8.5-10.1); CARBON DIOXIDE 24.7 mmol/L (21-32); CHLORIDE SERUM 115 mmol/L (98-107); GLUCOSE SERUM 82 mg/dL (74-106); MAGNESIUM 2.4 mg/dL (1.8-2.4); POTASSIUM SERUM 3.3 mmol/L (3.5-5.1); SODIUM SERUM 145 mmol/L (136-145)
[2018-02-10 09:37] VITALS: BP 155/66
[2018-02-10 13:41] VITALS: BP 149/54
[2018-02-10 17:18] VITALS: BP 151/53
[2018-02-10 20:55] VITALS: BP 166/61
[2018-02-11 05:44] VITALS: BP 158/59
[2018-02-11 07:24] LABS: BASOPHIL % 0.9 % (0-2); PLATELET COUNT 219 x10^3mcL (130-400); RED CELL DISTRIBUTION WIDTH 13.3 % (11.5-14.5)
[2018-02-11 07:41] LABS: CALCIUM 8.4 mg/dL (8.5-10.1); CARBON DIOXIDE 25.1 mmol/L (21-32); CHLORIDE SERUM 109 mmol/L (98-107); CREATININE SERUM 0.7 mg/dL (0.6-1.0); GLUCOSE SERUM 91 mg/dL (74-106); POTASSIUM SERUM 3.5 mmol/L (3.5-5.1); SODIUM SERUM 145 mmol/L (136-145)
[2018-02-11 09:24] VITALS: BP 163/55
[2018-02-11 10:40] VITALS: BP 147/65
[2018-02-11 13:55] VITALS: BP 124/43
[2018-02-11 17:59] VITALS: BP 151/67
[2018-02-11 21:22] VITALS: BP 143/47
[2018-02-12 06:00] VITALS: BP 157/46
[2018-02-12 06:15] LABS: CALCIUM 8.4 mg/dL (8.5-10.1); CARBON DIOXIDE 28.3 mmol/L (21-32); CHLORIDE SERUM 109 mmol/L (98-107); CREATININE SERUM 0.7 mg/dL (0.6-1.0); GLUCOSE SERUM 95 mg/dL (74-106); MAGNESIUM 2.1 mg/dL (1.8-2.4); PHOSPHOROUS 3.3 mg/dL (2.5-4.9); POTASSIUM SERUM 3.7 mmol/L (3.5-5.1); SODIUM SERUM 146 mmol/L (136-145)
[2018-02-12 06:20] LABS: IRON 43 ug/dL (50-170); TOTAL IRON BINDING CAPACITY 230 ug/dL (250-450)
[2018-02-12 08:00] LABS: BASOPHIL % 0.4 % (0-2); PLATELET COUNT 230 x10^3mcL (130-400); RED BLOOD CELLS 3.98 M/mm3 (4.10-5.10); RED CELL DISTRIBUTION WIDTH 13.4 % (11.5-14.5)
[2018-02-12 09:21] VITALS: BP 119/47
[2018-02-12] MEDS ORDERED: REG10 PO (13:37)
[2018-02-12 15:44] VITALS: BP 119/47
== END 2018-02-12 16:33 | disposition home or self-care (01) | DRG 247 ==
LOC: ED 09:57 → DU 12:05
PROVIDERS: Emergency Medicine; Family Medicine
DX: K56.600 Partial intestinal obstruction, unspecified as to cause (principal); N17.0 Acute kidney failure with tubular necrosis; E87.0 Hyperosmolality and hypernatremia; N39.0 Urinary tract infection, site not specified; R31.9 Hematuria, unspecified; D64.9 Anemia, unspecified; E78.5 Hyperlipidemia, unspecified; E03.9 Hypothyroidism, unspecified; Z88.0 Allergy status to penicillin; Z88.5 Allergy status to narcotic agent; Z91.018 Allergy to other foods; K21.9 Gastro-esophageal reflux disease without esophagitis; Z85.41 Personal history of malignant neoplasm of cervix uteri; M19.90 Unspecified osteoarthritis, unspecified site
CPT/HCPCS: 83880; 84439; 97110-GP; 97116-GP; 97530-GP; J0360; J1170; J1885; J1940; J1956; J2405; J2550; J3010; J3475; J3480; J3490; J7030; J8597; Q0092; Q9967

== ENCOUNTER 2018-08-04 14:19 | Emergency (ER) | payer MEDICARE, OTHER ==
[~2018-08-04] VITALS: Ht 160 cm; Wt 62.1 kg
[~2018-08-04 14:19] MED LIST changes: +REG10 PO
[2018-08-04 14:25] VITALS: Ht 160 cm; Wt 62.1 kg
[2018-08-04 16:34] VITALS: BP 173/78
== END 2018-08-04 16:34 | disposition home or self-care (01) ==
LOC: ED 14:19
DX: S80.02XA Contusion of left knee, initial encounter (principal); S80.01XA Contusion of right knee, initial encounter; M54.9 Dorsalgia, unspecified; I10 Essential (primary) hypertension; Z91.018 Allergy to other foods; Z88.5 Allergy status to narcotic agent; Z88.0 Allergy status to penicillin; Z98.890 Other specified postprocedural states; Z85.038 Personal history of other malignant neoplasm of large intestine; W18.39XA Other fall on same level, initial encounter; Y93.89 Activity, other specified; Y92.89 Other specified places as the place of occurrence of the external cause; Y99.8 Other external cause status
CPT/HCPCS: J3010

== ENCOUNTER → 2018-10-11 | Outpatient (CLI) | payer MEDICARE, OTHER ==
[2018-10-11 11:59] LABS: CALCIUM 8.9 mg/dL (8.5-10.1); CARBON DIOXIDE 28.7 mmol/L (21-32); CHLORIDE SERUM 104 mmol/L (98-107); CREATININE SERUM 0.9 mg/dL (0.6-1.0); GLUCOSE SERUM 94 mg/dL (74-106); POTASSIUM SERUM 3.5 mmol/L (3.5-5.1); SODIUM SERUM 132 mmol/L (136-145)
== END | disposition home or self-care (01) ==
LOC: LB 11:16
DX: N13.30 Unspecified hydronephrosis (principal); R32 Unspecified urinary incontinence

== ENCOUNTER 2019-05-14 08:52 | Inpatient (IN) | payer OTHER, MEDICARE ==
[~2019-05-14] VITALS: Ht 160 cm; Wt 59.4 kg
[2019-05-14 09:10] VITALS: Ht 160 cm; Wt 59.4 kg
[2019-05-14 10:18] LABS: CALCIUM 8.4 mg/dL (8.5-10.1); CARBON DIOXIDE 21.5 mmol/L (21-32); CHLORIDE SERUM 107 mmol/L (98-107); CREATININE SERUM 0.9 mg/dL (0.6-1.0); GLUCOSE SERUM 107 mg/dL (74-106); POTASSIUM SERUM 3.7 mmol/L (3.5-5.1); SODIUM SERUM 142 mmol/L (136-145)
[2019-05-14 10:24] LABS: ALKALINE PHOSPHATASE 57 U/L (46-116); ALT/SGPT 11 U/L (14-59); AMYLASE 50 U/L (25-115); AST/SGOT 13 U/L (15-37); BILIRUBIN TOTAL 0.69 mg/dL (0.20-1.00); LIPASE 96 IU/L (73-393); TOTAL PROTEIN, SERUM 6.7 g/dL (6.4-8.2)
[2019-05-14 10:44] LABS: RED CELL DISTRIBUTION WIDTH 13.6 % (11.5-14.5)
[2019-05-14 10:50] LABS: BASOPHIL % 0.1 % (0-2); PLATELET COUNT 234 x10^3mcL (130-400)
[2019-05-14] MEDS ORDERED: LEVOTHYROXIN0.075 M2 (12:07)
[2019-05-14] MEDS ORDERED: METOPROLOL SUCC50 M2 PO (12:13)
[2019-05-14] MEDS ORDERED: ZANTAC 150150 MG PO (12:14)
[2019-05-14] MEDS ORDERED: COZAAR100 MG PO (12:15)
[2019-05-14 13:12] VITALS: BP 133/84
[2019-05-14 17:14] VITALS: BP 211/79
[2019-05-14 17:26] VITALS: BP 182/63
[2019-05-14 17:39] VITALS: BP 170/57
[2019-05-14 21:18] VITALS: BP 156/63
[2019-05-15 05:42] VITALS: BP 147/57
[2019-05-15 06:17] LABS: CALCIUM 7.7 mg/dL (8.5-10.1); CARBON DIOXIDE 26.6 mmol/L (21-32); CHLORIDE SERUM 114 mmol/L (98-107); CREATININE SERUM 0.9 mg/dL (0.6-1.0); GLUCOSE SERUM 102 mg/dL (74-106); POTASSIUM SERUM 3.6 mmol/L (3.5-5.1); SODIUM SERUM 149 mmol/L (136-145)
[2019-05-15 06:21] LABS: BASOPHIL % 0.4 % (0-2); PLATELET COUNT 215 x10^3mcL (130-400); RED CELL DISTRIBUTION WIDTH 13.8 % (11.5-14.5)
[2019-05-15 08:36] VITALS: BP 172/66
[2019-05-15 09:13] LABS: UA SPECIFIC GRAVITY 1.015 (1.005-1.035); microscopic required? YES; urine erythrocyte 2+ (NEGATIVE)
[2019-05-15 09:14] VITALS: BP 141/55
[2019-05-15 12:23] VITALS: BP 134/48
[2019-05-15 17:13] VITALS: BP 158/54
[2019-05-15 20:30] VITALS: BP 166/61
[2019-05-16 05:44] VITALS: BP 149/60
[2019-05-16 06:29] LABS: BASOPHIL % 0.4 % (0-2); PLATELET COUNT 222 x10^3mcL (130-400)
[2019-05-16 06:37] LABS: CALCIUM 7.8 mg/dL (8.5-10.1); CARBON DIOXIDE 23.8 mmol/L (21-32); CHLORIDE SERUM 111 mmol/L (98-107); GLUCOSE SERUM 98 mg/dL (74-106); SODIUM SERUM 144 mmol/L (136-145)
[2019-05-16 07:30] VITALS: BP 148/55
[2019-05-16 11:35] VITALS: BP 140/55
[2019-05-16 15:51] VITALS: BP 130/60
[2019-05-16 20:14] VITALS: BP 145/57
[2019-05-17 05:18] VITALS: BP 150/57
[2019-05-17 06:58] LABS: CALCIUM 7.9 mg/dL (8.5-10.1); CARBON DIOXIDE 26.6 mmol/L (21-32); CHLORIDE SERUM 109 mmol/L (98-107); CREATININE SERUM 0.8 mg/dL (0.6-1.0); GLUCOSE SERUM 94 mg/dL (74-106); SODIUM SERUM 144 mmol/L (136-145)
[2019-05-17 07:25] LABS: BASOPHIL % 0.3 % (0-2); PLATELET COUNT 204 x10^3mcL (130-400)
[2019-05-17 07:42] VITALS: BP 149/62
[2019-05-17] MEDS ORDERED: BACTRIM DS1 TAB PO (11:28)
[2019-05-17 12:04] VITALS: BP 149/62
== END 2019-05-17 15:49 | disposition home or self-care (01) | DRG 463 ==
LOC: ED 08:52 → MU 11:54 → DU 11:54 → MU 12:58 → DU 18:01 → MU 05-16 15:37
PROVIDERS: Emergency Medicine; ADMIT Internal Medicine
DX: N39.0 Urinary tract infection, site not specified (principal); K56.7 Ileus, unspecified; E03.9 Hypothyroidism, unspecified; I10 Essential (primary) hypertension; M19.90 Unspecified osteoarthritis, unspecified site; Z92.3 Personal history of irradiation; Z68.24 Body mass index [BMI] 24.0-24.9, adult; Z85.41 Personal history of malignant neoplasm of cervix uteri; Z85.038 Personal history of other malignant neoplasm of large intestine; K21.9 Gastro-esophageal reflux disease without esophagitis; F41.9 Anxiety disorder, unspecified; E78.5 Hyperlipidemia, unspecified
CPT/HCPCS: 90732; G0378; J0360; J1885; J1956; J2405; J3490; J7042; J8597; Q0092; Q9967

== ENCOUNTER 2019-06-08 14:32 | Emergency (ER) | payer MEDICARE, OTHER ==
[~2019-06-08] VITALS: Ht 162.6 cm; Wt 60.3 kg
[~2019-06-08 14:32] MED LIST changes: +COZAAR100 MG PO; +LEVOTHYROXIN0.075 M2; +METOPROLOL SUCC50 M2 PO; +ZANTAC 150150 MG PO
[2019-06-08 14:51] VITALS: Ht 162.6 cm; Wt 60.3 kg
[2019-06-08 16:52] LABS: BASOPHIL % 0.2 % (0-2); PLATELET COUNT 167 x10^3mcL (130-400); RED CELL DISTRIBUTION WIDTH 14.3 % (11.5-14.5)
[2019-06-08 17:04] LABS: CALCIUM 7.9 mg/dL (8.5-10.1); CARBON DIOXIDE 20.6 mmol/L (21-32); CHLORIDE SERUM 103 mmol/L (98-107); GLUCOSE SERUM 99 mg/dL (74-106); POTASSIUM SERUM 3.7 mmol/L (3.5-5.1); SODIUM SERUM 136 mmol/L (136-145)
[2019-06-08 17:09] LABS: ALKALINE PHOSPHATASE 53 U/L (46-116); ALT/SGPT 17 U/L (14-59); AST/SGOT 28 U/L (15-37); BILIRUBIN TOTAL 0.8 mg/dL (0.20-1.00)
[2019-06-08 17:15] LABS: ALBUMIN 2.8 g/dL (3.4-5.0); TOTAL PROTEIN, SERUM 5.8 g/dL (6.4-8.2)
[2019-06-08 18:30] VITALS: BP 144/50
== END 2019-06-08 19:00 | disposition home or self-care (01) ==
LOC: ED 14:32
PROVIDERS: Emergency Medicine
DX: K52.9 Noninfective gastroenteritis and colitis, unspecified (principal); I10 Essential (primary) hypertension; Z98.890 Other specified postprocedural states; Z85.41 Personal history of malignant neoplasm of cervix uteri; Z88.0 Allergy status to penicillin; Z88.5 Allergy status to narcotic agent; Z91.018 Allergy to other foods
CPT/HCPCS: 36415; J1885; Q0092

== ENCOUNTER 2019-06-09 20:14 | Emergency (ER) | payer MEDICARE, OTHER ==
[~2019-06-09] VITALS: Ht 157.5 cm; Wt 60.8 kg
[2019-06-09 20:52] VITALS: Ht 157.5 cm; Wt 60.8 kg
[2019-06-09 20:56] LABS: PLATELET COUNT 160 x10^3mcL (130-400); RED CELL DISTRIBUTION WIDTH 14.2 % (11.5-14.5)
[2019-06-09 21:06] LABS: CALCIUM 7.8 mg/dL (8.5-10.1); CARBON DIOXIDE 23.7 mmol/L (21-32); CHLORIDE SERUM 102 mmol/L (98-107); GLUCOSE SERUM 102 mg/dL (74-106); POTASSIUM SERUM 3.4 mmol/L (3.5-5.1); SODIUM SERUM 135 mmol/L (136-145)
[2019-06-09 21:07] LABS: BAND NEUTROPHIL 0 % (0-10); BASOPHIL 0 % (0-2); MONOCYTE 5 % (0-7); SEGMENTED NEUTROPHILS 75 % (37-75); rbc morphology (normal/abnorm) NORMAL (NORMAL)
[2019-06-09 21:11] LABS: ALBUMIN 2.7 g/dL (3.4-5.0); ALKALINE PHOSPHATASE 57 U/L (46-116); ALT/SGPT 18 U/L (14-59); AST/SGOT 22 U/L (15-37); BILIRUBIN TOTAL 0.7 mg/dL (0.20-1.00); TOTAL PROTEIN, SERUM 6.2 g/dL (6.4-8.2)
[2019-06-09 22:35] VITALS: BP 164/53
== END 2019-06-09 22:35 | disposition home or self-care (01) ==
LOC: ED 20:14
PROVIDERS: Emergency Medicine
DX: A04.72 Enterocolitis due to Clostridium difficile, not specified as recurrent (principal); I10 Essential (primary) hypertension; Z98.890 Other specified postprocedural states; Z88.0 Allergy status to penicillin; Z88.5 Allergy status to narcotic agent; Z91.018 Allergy to other foods; Z85.038 Personal history of other malignant neoplasm of large intestine; Z85.41 Personal history of malignant neoplasm of cervix uteri
CPT/HCPCS: 36415; J2405; J7030; Q0162

== ENCOUNTER → 2019-07-09 | Outpatient (CLI) | payer MEDICARE, OTHER ==
[2019-07-09 10:15] LABS: FREE T4 1.14 ng/dL (0.76-1.46); FREE THYROXINE INDEX 3.7 ug/dL (1.4-4.5)
[2019-07-09 10:24] LABS: T3 TOTAL 1.04 ng/mL
== END | disposition home or self-care (01) ==
LOC: LB 09:20
DX: E03.9 Hypothyroidism, unspecified (principal)
CPT/HCPCS: 84439

== ENCOUNTER 2019-07-13 20:31 | Emergency (ER) | payer MEDICARE, OTHER ==
[~2019-07-13] VITALS: Ht 167.6 cm; Wt 60.3 kg
[2019-07-13 20:35] VITALS: Ht 167.6 cm; Wt 60.3 kg
[2019-07-13 22:43] LABS: BASOPHIL % 0.2 % (0-2); PLATELET COUNT 252 x10^3mcL (130-400)
[2019-07-13 22:44] LABS: RED CELL DISTRIBUTION WIDTH 14.6 % (11.5-14.5)
[2019-07-13 23:06] LABS: CALCIUM 8.9 mg/dL (8.5-10.1); CARBON DIOXIDE 25.8 mmol/L (21-32); CHLORIDE SERUM 104 mmol/L (98-107); CREATININE SERUM 0.9 mg/dL (0.6-1.0); GLUCOSE SERUM 122 mg/dL (74-106); POTASSIUM SERUM 3.4 mmol/L (3.5-5.1); SODIUM SERUM 139 mmol/L (136-145)
[2019-07-13 23:10] LABS: ALBUMIN 3.5 g/dL (3.4-5.0); ALKALINE PHOSPHATASE 55 U/L (46-116); ALT/SGPT 17 U/L (14-59); AST/SGOT 24 U/L (15-37); BILIRUBIN TOTAL 0.7 mg/dL (0.20-1.00); TOTAL PROTEIN, SERUM 7.2 g/dL (6.4-8.2)
[2019-07-14 00:35] LABS: microscopic required? YES; urine erythrocyte 3+ (NEGATIVE)
[2019-07-14 00:54] VITALS: BP 186/63
== END 2019-07-14 01:23 | disposition home or self-care (01) ==
LOC: ED 20:31
PROVIDERS: Emergency Medicine
DX: K52.9 Noninfective gastroenteritis and colitis, unspecified (principal); I10 Essential (primary) hypertension; Z88.0 Allergy status to penicillin; Z88.5 Allergy status to narcotic agent; Z91.018 Allergy to other foods; Z98.890 Other specified postprocedural states
CPT/HCPCS: 36569; 83880; J2405; J3010; J7030; Q9967

== ENCOUNTER 2019-08-21 18:45 | Inpatient (IN) | payer OTHER, MEDICARE ==
[~2019-08-21] VITALS: Ht 160 cm; Wt 61.7 kg
[2019-08-21 18:56] VITALS: Ht 160 cm; Wt 61.7 kg
[2019-08-21 20:20] LABS: BASOPHIL % 0.4 % (0-2); PLATELET COUNT 244 x10^3mcL (130-400); RED CELL DISTRIBUTION WIDTH 13.7 % (11.5-14.5)
[2019-08-21 20:21] LABS: CALCIUM 8.8 mg/dL (8.5-10.1); CARBON DIOXIDE 26.2 mmol/L (21-32); CHLORIDE SERUM 101 mmol/L (98-107); GLUCOSE SERUM 109 mg/dL (74-106); POTASSIUM SERUM 3.8 mmol/L (3.5-5.1); SODIUM SERUM 134 mmol/L (136-145)
[2019-08-21 20:26] LABS: ALBUMIN 3.4 g/dL (3.4-5.0); ALKALINE PHOSPHATASE 57 U/L (46-116); ALT/SGPT 21 U/L (14-59); AST/SGOT 21 U/L (15-37); BILIRUBIN TOTAL 0.36 mg/dL (0.20-1.00); LIPASE 193 IU/L (73-393); TOTAL PROTEIN, SERUM 6.7 g/dL (6.4-8.2)
[2019-08-21 23:37] LABS: CHOLESTEROL/HDL RATIO 3.3; MAGNESIUM 1.9 mg/dL (1.8-2.4); PHOSPHOROUS 3.7 mg/dL (2.5-4.9)
[2019-08-22] MEDS ORDERED: NEXIUM40 MG PO (00:45)
[2019-08-22 02:38] VITALS: BP 173/67
[2019-08-22 06:09] VITALS: BP 131/35
[2019-08-22 06:57] LABS: BASOPHIL % 0.2 % (0-2); PLATELET COUNT 208 x10^3mcL (130-400); RED CELL DISTRIBUTION WIDTH 13.4 % (11.5-14.5)
[2019-08-22 07:07] LABS: CALCIUM 8.3 mg/dL (8.5-10.1); CHLORIDE SERUM 102 mmol/L (98-107); CREATININE SERUM 0.9 mg/dL (0.6-1.0); GLUCOSE SERUM 112 mg/dL (74-106); POTASSIUM SERUM 3.7 mmol/L (3.5-5.1); SODIUM SERUM 135 mmol/L (136-145)
[2019-08-22 08:45] VITALS: BP 148/57
[2019-08-22 12:25] VITALS: BP 147/57
[2019-08-22 16:37] VITALS: BP 132/42
[2019-08-22 20:25] VITALS: BP 136/47
[2019-08-23 05:52] VITALS: BP 156/60
[2019-08-23 06:06] LABS: BASOPHIL % 0.6 % (0-2); PLATELET COUNT 233 x10^3mcL (130-400); RED CELL DISTRIBUTION WIDTH 14.2 % (11.5-14.5)
[2019-08-23 06:55] LABS: CALCIUM 8.5 mg/dL (8.5-10.1); CARBON DIOXIDE 26.3 mmol/L (21-32); CHLORIDE SERUM 107 mmol/L (98-107); GLUCOSE SERUM 90 mg/dL (74-106); POTASSIUM SERUM 3.8 mmol/L (3.5-5.1); SODIUM SERUM 140 mmol/L (136-145)
[2019-08-23 08:39] VITALS: BP 170/70
[2019-08-23 12:15] VITALS: BP 163/52
[2019-08-23 16:21] VITALS: BP 147/41
[2019-08-23 20:43] VITALS: BP 165/56
[2019-08-24 05:47] VITALS: BP 146/51
[2019-08-24 06:33] LABS: BASOPHIL % 0.5 % (0-2); PLATELET COUNT 211 x10^3mcL (130-400); RED CELL DISTRIBUTION WIDTH 13.2 % (11.5-14.5)
[2019-08-24 07:03] LABS: CALCIUM 8.1 mg/dL (8.5-10.1); CARBON DIOXIDE 25.5 mmol/L (21-32); CHLORIDE SERUM 108 mmol/L (98-107); CREATININE SERUM 0.8 mg/dL (0.6-1.0); GLUCOSE SERUM 99 mg/dL (74-106); MAGNESIUM 1.8 mg/dL (1.8-2.4); PHOSPHOROUS 3.2 mg/dL (2.5-4.9); POTASSIUM SERUM 3.4 mmol/L (3.5-5.1); SODIUM SERUM 142 mmol/L (136-145)
[2019-08-24 09:31] VITALS: BP 150/61
[2019-08-24 09:41] VITALS: BP 150/61
== END 2019-08-24 14:34 | disposition home or self-care (01) | DRG 247 ==
LOC: ED 18:45 → DU 23:10 → EDBEDREQSVC 23:11 → DU 08-22 01:56
PROVIDERS: Emergency Medicine; ADMIT Internal Medicine
PROC: 0D9670Z Drainage of Stomach with Drainage Device, Via Natural or Artificial Opening (ICD-10-PCS; principal; 2019-08-22)
DX: K56.600 Partial intestinal obstruction, unspecified as to cause (principal); N17.0 Acute kidney failure with tubular necrosis; E03.9 Hypothyroidism, unspecified; I10 Essential (primary) hypertension; K21.9 Gastro-esophageal reflux disease without esophagitis; K29.70 Gastritis, unspecified, without bleeding; M19.90 Unspecified osteoarthritis, unspecified site; Z92.3 Personal history of irradiation; Z68.22 Body mass index [BMI] 22.0-22.9, adult; K59.00 Constipation, unspecified; Z85.41 Personal history of malignant neoplasm of cervix uteri; F41.9 Anxiety disorder, unspecified; Z85.038 Personal history of other malignant neoplasm of large intestine; Z88.6 Allergy status to analgesic agent; Z88.0 Allergy status to penicillin; Z91.018 Allergy to other foods; Z82.3 Family history of stroke; Z82.49 Family history of ischemic heart disease and other diseases of the circulatory system
CPT/HCPCS: 83880; G0378; J0360; J1885; J2405; J3010; J3490; J7030; J7042; Q0092; Q0162; Q9967

== ENCOUNTER 2019-09-09 11:15 | Inpatient (IN) | payer OTHER, MEDICARE ==
[~2019-09-09] VITALS: Ht 160 cm; Wt 57.2 kg
[2019-09-09 11:42] VITALS: Ht 160 cm; Wt 57.2 kg
--- NOTE | 2019-09-09 12:20 | NUR ---
PT HAS CHRONIC EPIGASTRIC PAIN THAT PT STATES HAS GOTTEN WORSE IN THE PAST 2 DAYS WITH VOMITTING. DENIES FEVER OR DIARRHEA
--- NOTE | 2019-09-09 12:23 | NUR ---
RELEIVING PRIMARY RN FOR BREAK. ATTEMPTED 1 IV START TO RIGHT AC AREA, UNSUCCESSFUL. PER PT AND HER DAUGHTER- USUALL YHAVE TO TO IT IN THE NECK (Aaron) WILL INFORM MD. AWARE OF SMALL BOWEL FOLLOWTHROUGH EXAM.
[2019-09-09 12:28] LABS: BASOPHIL % 1.1 % (0-2); PLATELET COUNT 219 x10^3mcL (130-400); RED CELL DISTRIBUTION WIDTH 13.9 % (11.5-14.5)
[2019-09-09 13:18] LABS: CHLORIDE SERUM 105 mmol/L (98-107); POTASSIUM SERUM 3.9 mmol/L (3.5-5.1); SODIUM SERUM 141 mmol/L (136-145)
[2019-09-09 13:26] LABS: CALCIUM 9.3 mg/dL (8.5-10.1); CARBON DIOXIDE 25.4 mmol/L (21-32); CREATININE SERUM 0.9 mg/dL (0.6-1.0); GLUCOSE SERUM 105 mg/dL (74-106)
--- NOTE | 2019-09-09 13:30 | NUR ---
MD SUAREZ AWARE THAT CURRENTLY UNABLE TO GET IV. ORDERED NASAL KETAMINE AND ODT ZOFRAN FOR NAUSEA AND PAIN. PT VOMITTED CONTRAST. GAVE ORDERED ODT. WILL INFORM FOR BOWEL STUDY
[2019-09-09 13:31] LABS: ALBUMIN 3.6 g/dL (3.4-5.0); ALKALINE PHOSPHATASE 53 U/L (46-116); ALT/SGPT 29 U/L (14-59); AST/SGOT 22 U/L (15-37); BILIRUBIN TOTAL 0.47 mg/dL (0.20-1.00); LIPASE 120 IU/L (73-393)
--- NOTE | 2019-09-09 13:35 | NUR ---
INFORMED DR SUAREZ OF PT HIGH BP. AWAITING ORDERS.
--- NOTE | 2019-09-09 14:11 | NUR ---
TOLD PT WE NEED URINE SAMPLE. PT STATED NO. "TOO MUCH PAIN"
[2019-09-09 15:16] LABS: UA SPECIFIC GRAVITY 1.015 (1.005-1.035); microscopic required? YES; urine erythrocyte NEGATIVE (NEGATIVE)
--- NOTE | 2019-09-09 15:21 | NUR ---
PT STATES THAT [facility]OS[facility] IS BETTER.
--- NOTE | 2019-09-09 17:00 | NUR ---
PT ABLE TO AMBULATE TO RESTROOM. WHILE IN RESTROOOM GAVE PT CALL LIGHT. PT USED CALL LIGHT. WHEN FOUND IN RESTROOM PT HAD BRIGHT YELLOW EMESIS ABOUT 600ML ON THE FLOOR. PT HEPED TO WC AND ESCROTED BACK TO BED
--- NOTE | 2019-09-09 17:27 | NUR ---
PT REPORT GIVEN TO AMBAR TO RESUME CARE OF PT
[2019-09-09 17:32] LABS: T3 TOTAL 1.11 ng/mL
[2019-09-09 17:54] LABS: MAGNESIUM 1.8 mg/dL (1.8-2.4)
[2019-09-09 17:55] LABS: CHOLESTEROL/HDL RATIO 3.3
--- NOTE | 2019-09-09 18:07 | NUR ---
RECEIVED PT FROM ER, PT ADMIT FOR INTRACTABLE ABD PAIN, PT IS A/O X4, VERBAL RESPONSIVE. LUNG SOUND CLEAR BILATERAL, NO COUGH, NO SOB, PT DENY ANY CHEST PAIN OR DISCOMFORT, BOWEL SOUND PRESENT ALL 4 QUADRANTS, NO DISTENTION, C/O MID ABD PAIN 5/10 AT THIS MOMENT, PT DENY ANY DIARRHEA. NO N/V AT THIS MOMENT, PEDAL PULSE PRESENT BOTH FEET, NO EDEMA, IV AT RIGHT EJ, DRESSING INTACT FLUSH WELL, ALL ADLS ASSIST, ALL NEED MET, CALL LIGHT IN REACH, WILL CONTINUE TO MONITOR.
--- NOTE | 2019-09-09 18:14 | NUR ---
PT SEEN AT BEDSIDE. DENIES ABD PAIN AT THIS TIME BUT C/O NAUSEA. MEDICATED ORDERED PER EMAR, COMFORT MEASURES IMPLEMENTED. PT AOX4, RESP E/U ON RA. IV TO REJ W/ NO SIGNS OF INFILTRATION, IVF INFUSING WELL. BED IN LOWEST POSITION AND CALL LIGHT WITHIN REACH. WILL ENDORSE TO ONCOMING NURSE.
[2019-09-09 18:34] LABS: FREE T4 1.68 ng/dL (0.76-1.46); FREE THYROXINE INDEX 4.7 ug/dL (1.4-4.5)
--- NOTE | 2019-09-09 19:30 | NUR ---
PT RECIEVED FROM DAY NURSE. PT RESTING IN BED AT THIS TIME. DENIES PAIN OR DISCOMFORT. BREATHING E/U ON RA. PT M/S, DENIES CP, NV, DIZZINESS, AND PALPATATIONS. PALPABLE PULSES, NO EDEMA NOTED AT THIS TIME. ABD SOFT AND ROUND, DENIES PAIN TO PALPATION. GENERAZLIED WEAKNESS, AMBULATES WITH ASSIST. IV TO REJ, INTACT AND INFUSING. BED AT LOWEST POSITION. CALL LIGHT WITHIN REACH. WILL CONTINUE TO MONITOR.
[2019-09-09 20:50] VITALS: BP 103/40
--- NOTE | 2019-09-10 | NUR ---
PT RESTING IN BED AT THIS TIME. BREATHING E/U ON RA. NO SIGNS OF ACUTE DISTRESS AT THIS TIME. BED AT LOWEST POSITION. CALL LIGHT WITHIN REACH. WILL CONTINUE TO MONITOR.
[2019-09-10 04:53] VITALS: BP 136/46
--- NOTE | 2019-09-10 06:38 | NUR ---
PT RESTING IN BED AT THIS TIME. PT DENIES PAIN OR DISCOMFORT. NO SIGNS OF ACUTE DISTRESS NOTED AT THIS TIME. ALL NEEDS AND CONCERNS ADDRESSED THIS SHIFT. BED AT LOWEST POSITION. CALLL LGIHT WITHIN REACH. WILL ENDORSE TO DAY NURSE.
--- NOTE | 2019-09-10 07:35 | NUR ---
RECEIVED PATIENT AWAKE/ALERT IN BED, NPO AT THIS TIME, DENIES ABD PAIN, LYNN RN ASSIST W/ NICARAGUAN TRANSLATE TO DISCUSS POC, AWAITING GI CONSULT. IV TO REJ INTACT AND INFUSING NS AT 100ML/HR, CALL LIGHT WITHIN REACH.
[2019-09-10 08:32] VITALS: BP 159/57
--- NOTE | 2019-09-10 10:00 | NUR ---
DR. NAVARRO AT BEDSIDE SEEN AND EXAM PATIENT, NO FURTHER INTERVENTION. DR. NAVARRO SPOKE TO DR. UNGER AND RECOMMEND SURGEON TO SEE PATIENT FOR RE-CURRENT SBO.
--- NOTE | 2019-09-10 11:30 | NUR ---
REPORT GAVE TO AIDA TO RESUME CARE.
--- NOTE | 2019-09-10 12:40 | NUR ---
PT SITTING UP IN BED A/A. BREATHING EQUAL/UNLABORED ON RA. NO ACUTE PAIN/ DISTRESS. IVF RUNNING AT 100ML/HR, SITE WNL. BED IN LOW POSITION, CALL LIGHT IN REACH, SAFETY PRECAUTIONS IN PLACE. WILL CONTINUE TO MONITOR
[2019-09-10 12:59] VITALS: BP 152/51
--- NOTE | 2019-09-10 16:43 | NUR ---
PT SITTING IN BED A/A. BREATHING EQUAL/UNLABORED ON RA. NO ACUTE PAIN/ DISTRESS. IVF RUNNING, SITE WNL. BED IN LOW POSITION, CALL LIGHT IN REACH, SAFETY PRECAUTIONS IN PLACE. WILL CONTINUE TO MONITOR
[2019-09-10 18:09] VITALS: BP 148/47
--- NOTE | 2019-09-10 18:24 | NUR ---
PT BROUGHT DOWN TO RADIOLOGY VIA W/C. NO ACUTE DISTRESS
--- NOTE | 2019-09-10 18:55 | NUR ---
PT BACK FROM RADIOLOGY. PT LYING IN BED A/A. BREATHING EQUAL/UNLABORED ON RA. NO ACUTE PAIN/ DISTRESS. IVF RUNNING, SITE WNL. BED IN LOW POSITON, CALL LIGHT IN REACH, SAFETY PRECAUTIONS IN PLACE. WILL ENDORSE TO NIGHT NURSE
--- NOTE | 2019-09-10 19:26 | NUR ---
EYES CLOSED, EASILY AWAKENED. ORIENTED TO NAME, PLACE, TIME AND SITUATION. SPEECH CLEAR AND APPROPRIATE. BREATHING EVEN AND UNLABORED ON ROOM AIR. HOB ELEVATED 40 DEG. CALL LIGHT WITHIN EASY REACH. DENIES HAVING ABD PAIN OR NAUSEA AT THIS TIME. MED SURG. PT. BED IN LOWEST POSITION. UPPER SIDE RAILS IN RAISED POSITION. BED ALARM ON.
--- NOTE | 2019-09-10 19:27 | NUR ---
IVF OF NS AT 100ML/HR INFUSING TO RIGHT IJ PERIPHERAL LINE. IV SITE FREE FROM REDNESS OR SWELLING.
[2019-09-10 20:40] VITALS: BP 158/50
--- NOTE | 2019-09-11 02:00 | NUR ---
EYES CLOSED, BREATHING EVEN AND UNLABORED. CALL LIGHT WITHIN EASY REACH.
[2019-09-11 05:05] VITALS: BP 168/59
[2019-09-11 06:16] VITALS: BP 116/41
[2019-09-11 06:58] LABS: BASOPHIL % 0.4 % (0-2); PLATELET COUNT 151 x10^3mcL (130-400); RED CELL DISTRIBUTION WIDTH 13.6 % (11.5-14.5)
[2019-09-11 07:02] LABS: CALCIUM 7.6 mg/dL (8.5-10.1); CARBON DIOXIDE 23.7 mmol/L (21-32); CHLORIDE SERUM 108 mmol/L (98-107); CREATININE SERUM 0.7 mg/dL (0.6-1.0); GLUCOSE SERUM 84 mg/dL (74-106); MAGNESIUM 1.8 mg/dL (1.8-2.4); PHOSPHOROUS 3.2 mg/dL (2.5-4.9); POTASSIUM SERUM 3.6 mmol/L (3.5-5.1); SODIUM SERUM 141 mmol/L (136-145)
--- NOTE | 2019-09-11 07:16 | NUR ---
AWAKE AND ALERT, BREATHING EVEN AND UNLABORED ON ROOM AIR. AMBULATED TO RESTROOM LAST NIGHT. DENIES HAVING ABD PAIN OR NAUSEA DURING SHIFT. IVF INFUSING WELL. ENDORSED TO NURSE DAMARIS
--- NOTE | 2019-09-11 07:30 | NUR ---
RECEIVED PATIENT IN BED, AWAKE ALERT AND ORIENTED. LUX[place]BOURG[place] SPEAKING. IVF INFUSING WELL TO RT EJ. DENIES ANY PAIN OR DISCOMFORT. RESP EVEN AND UNLABORED, LUNGS CLEAR ON ROOM AIR. TOLERATING CLEAR LIQUID DIET WELL.PER PATIENT SHE AMBULATES WITH A WALKER OR CANE AT HOME. NO ACUTE DISTRESS NOTED.
[2019-09-11 08:07] VITALS: BP 150/61
--- NOTE | 2019-09-11 10:00 | NUR ---
PATIENT'S PLAN OF CARE WAS DISCUSSED AND REVIEWED WITH SPOOL WORKER:DAMARIS RUSSELL. I HAVE REVIEWED THE DATA COLLECTION BY SPOOL WORKER (NAME):DAMARIS RUSSELL. ENTERED ON (DATE/TIME):09/11/19. I CONCUR WITH THE DATA AND ANY EXCEPTIONS OR COMMENTS ARE LISTED BELOW:
[2019-09-11 11:52] VITALS: BP 131/59
--- NOTE | 2019-09-11 15:15 | NUR ---
PATIENT READY FOR DISCHARGE HOME. IRA GARCIAS'D. DISCHARGE INSTRUCTIONS GIVEN TO PATIENT'S DAUGHTER AT BEDSIDE WHOM TRANSLATED IT IN [place]UR[place] FOR THE PATIENT. CONDITION APPEARS STABLE. AWAITING ANOTHER FAMILY MEMBER TO ARRIVE TO TRANSPORT PATIENT HOME.
--- NOTE | 2019-09-11 15:41 | NUR ---
PATIENT DRESSED READY FOR D/C HOME. FAMILY AT BEDSIDE TO TRANSPORT PATIENT.
== END 2019-09-11 15:43 | disposition home or self-care (01) | DRG 247 ==
LOC: ED 11:15 → DU 16:10 → MU 16:10 → DU 17:41 → MU 18:11
PROVIDERS: Emergency Medicine; ADMIT Internal Medicine
DX: K56.51 Intestinal adhesions [bands], with partial obstruction (principal); N39.0 Urinary tract infection, site not specified; E83.39 Other disorders of phosphorus metabolism; E03.9 Hypothyroidism, unspecified; I10 Essential (primary) hypertension; K21.9 Gastro-esophageal reflux disease without esophagitis; M19.90 Unspecified osteoarthritis, unspecified site; E78.5 Hyperlipidemia, unspecified; Z92.3 Personal history of irradiation; Z85.41 Personal history of malignant neoplasm of cervix uteri; Z85.038 Personal history of other malignant neoplasm of large intestine; Z88.5 Allergy status to narcotic agent; Z88.0 Allergy status to penicillin; Z91.018 Allergy to other foods; F41.9 Anxiety disorder, unspecified
CPT/HCPCS: 84439; G0378; J2405; J2765; J3010; J3490; J7030; Q0092; Q0162; Q9967

== ENCOUNTER → 2019-09-22 | Outpatient (CLI) | payer OTHER, MEDICARE ==
[2019-09-22 15:13] LABS: T3 TOTAL 0.91 ng/mL
[2019-09-22 15:25] LABS: FREE T4 1.17 ng/dL (0.76-1.46); FREE THYROXINE INDEX 3.4 ug/dL (1.4-4.5); T4(THYROXINE) 9.2 ug/dL (4.7-13.3)
== END | disposition home or self-care (01) ==
LOC: LB 13:29
DX: E03.9 Hypothyroidism, unspecified (principal)
CPT/HCPCS: 84439

== ENCOUNTER 2019-12-03 23:04 | Inpatient (IN) | payer OTHER, MEDICARE ==
[~2019-12-03] VITALS: Ht 160 cm; Wt 60.8 kg
[2019-12-03 23:16] VITALS: Ht 160 cm; Wt 60.8 kg
[2019-12-04 00:33] LABS: CALCIUM 9.6 mg/dL (8.5-10.1); CARBON DIOXIDE 25.3 mmol/L (21-32); CHLORIDE SERUM 103 mmol/L (98-107); CREATININE SERUM 0.9 mg/dL (0.6-1.0); GLUCOSE SERUM 173 mg/dL (74-106); POTASSIUM SERUM 3.4 mmol/L (3.5-5.1); SODIUM SERUM 139 mmol/L (136-145)
[2019-12-04 00:37] LABS: ALBUMIN 3.9 g/dL (3.4-5.0); ALKALINE PHOSPHATASE 76 U/L (46-116); ALT/SGPT 21 U/L (14-59); AMYLASE 83 U/L (25-115); AST/SGOT 21 U/L (15-37); BASOPHIL % 0.2 % (0-2); BILIRUBIN TOTAL 0.78 mg/dL (0.20-1.00); LIPASE 179 IU/L (73-393); PLATELET COUNT 264 x10^3mcL (130-400); RED CELL DISTRIBUTION WIDTH 14.3 % (11.5-14.5); TOTAL PROTEIN, SERUM 7.9 g/dL (6.4-8.2)
[2019-12-04] MEDS ORDERED: OMEPRAZOLE10 M1 (03:13)
[2019-12-04] MEDS ORDERED: LOSARTAN POTASS25 M1 (03:14)
[2019-12-04 03:15] LABS: T3 TOTAL 1.12 ng/mL
[2019-12-04 03:40] LABS: CHOLESTEROL/HDL RATIO 3.5
[2019-12-04 03:52] VITALS: BP 199/83
[2019-12-04 04:01] LABS: microscopic required? YES; urine erythrocyte 3+ (NEGATIVE)
[2019-12-04 04:02] LABS: FREE T4 1.51 ng/dL (0.76-1.46); FREE THYROXINE INDEX 3.5 ug/dL (1.4-4.5); T4(THYROXINE) 10.4 ug/dL (4.7-13.3)
[2019-12-04 04:14] LABS: AMPHETAMINE QUAL UR NONE DETECTED (See below)
[2019-12-04 04:25] VITALS: BP 192/79
[2019-12-04 07:12] LABS: BASOPHIL % 0.1 % (0-2); PLATELET COUNT 259 x10^3mcL (130-400)
[2019-12-04 07:54] LABS: RED CELL DISTRIBUTION WIDTH 14.6 % (11.5-14.5)
[2019-12-04 08:07] LABS: CALCIUM 8.8 mg/dL (8.5-10.1); CARBON DIOXIDE 22.5 mmol/L (21-32); CHLORIDE SERUM 104 mmol/L (98-107); CREATININE SERUM 0.9 mg/dL (0.6-1.0); GLUCOSE SERUM 149 mg/dL (74-106); POTASSIUM SERUM 3.5 mmol/L (3.5-5.1); SODIUM SERUM 140 mmol/L (136-145)
[2019-12-04 08:09] VITALS: BP 142/47
[2019-12-04 11:57] VITALS: BP 144/56
[2019-12-04 16:47] VITALS: BP 118/40
[2019-12-04 20:31] VITALS: BP 11/57; BP 111/57
[2019-12-05 05:53] VITALS: BP 130/50
[2019-12-05 06:47] LABS: BASOPHIL % 0.4 % (0-2); PLATELET COUNT 220 x10^3mcL (130-400); RED CELL DISTRIBUTION WIDTH 14.5 % (11.5-14.5)
[2019-12-05 06:54] LABS: CALCIUM 8.2 mg/dL (8.5-10.1); CARBON DIOXIDE 25.7 mmol/L (21-32); CHLORIDE SERUM 108 mmol/L (98-107); CREATININE SERUM 1.3 mg/dL (0.6-1.0); GLUCOSE SERUM 92 mg/dL (74-106); MAGNESIUM 2.1 mg/dL (1.8-2.4); PHOSPHOROUS 4.3 mg/dL (2.5-4.9); POTASSIUM SERUM 3.7 mmol/L (3.5-5.1); SODIUM SERUM 143 mmol/L (136-145)
[2019-12-05 09:15] VITALS: BP 164/56
[2019-12-05 12:46] VITALS: BP 175/55
[2019-12-05 14:30] VITALS: BP 126/43
[2019-12-05 14:49] VITALS: BP 126/43
== END 2019-12-05 16:56 | disposition home or self-care (01) | DRG 247 ==
LOC: ED 23:04 → DU 12-04 02:06
PROVIDERS: Emergency Medicine; ADMIT Internal Medicine
DX: K56.600 Partial intestinal obstruction, unspecified as to cause (principal); N39.0 Urinary tract infection, site not specified; M41.9 Scoliosis, unspecified; E03.9 Hypothyroidism, unspecified; E87.6 Hypokalemia; K21.9 Gastro-esophageal reflux disease without esophagitis; I16.1 Hypertensive emergency; I10 Essential (primary) hypertension; M19.90 Unspecified osteoarthritis, unspecified site; E78.5 Hyperlipidemia, unspecified; F32.9 Major depressive disorder, single episode, unspecified; Z68.23 Body mass index [BMI] 23.0-23.9, adult; Z85.41 Personal history of malignant neoplasm of cervix uteri; Z85.038 Personal history of other malignant neoplasm of large intestine
CPT/HCPCS: 84439; C9113; G0378; J0360; J0696; J0780; J1885; J2405; J3010; J3490; J7030; J8597; Q0092; Q9967

== ENCOUNTER 2019-12-19 16:10 | Emergency (ER) | payer MEDICARE, OTHER ==
[~2019-12-19] VITALS: Ht 160 cm; Wt 62.6 kg
[~2019-12-19 16:10] MED LIST changes: +LOSARTAN POTASS25 M1; +OMEPRAZOLE10 M1
[2019-12-19 16:19] VITALS: Ht 160 cm; Wt 62.6 kg
[2019-12-19 17:33] LABS: BASOPHIL % 0.8 % (0-2); PLATELET COUNT 216 x10^3mcL (130-400); RED CELL DISTRIBUTION WIDTH 14.3 % (11.5-14.5)
[2019-12-19 17:37] LABS: CALCIUM 8.5 mg/dL (8.5-10.1); CARBON DIOXIDE 26.3 mmol/L (21-32); CHLORIDE SERUM 104 mmol/L (98-107); GLUCOSE SERUM 91 mg/dL (74-106); POTASSIUM SERUM 3.6 mmol/L (3.5-5.1); SODIUM SERUM 140 mmol/L (136-145)
[2019-12-19 17:41] LABS: ALKALINE PHOSPHATASE 52 U/L (46-116); ALT/SGPT 17 U/L (14-59); AST/SGOT 19 U/L (15-37); BILIRUBIN TOTAL 0.99 mg/dL (0.20-1.00); LIPASE 113 IU/L (73-393); TOTAL PROTEIN, SERUM 6.4 g/dL (6.4-8.2)
[2019-12-19 17:42] LABS: ALBUMIN 3.2 g/dL (3.4-5.0)
[2019-12-19 20:07] VITALS: BP 171/57
== END 2019-12-19 20:07 | disposition left against medical advice (07) ==
LOC: ED 16:10
PROVIDERS: Emergency Medicine
DX: E86.0 Dehydration (principal); R10.13 Epigastric pain; K56.609 Unspecified intestinal obstruction, unspecified as to partial versus complete obstruction; I10 Essential (primary) hypertension; Z88.5 Allergy status to narcotic agent; Z88.0 Allergy status to penicillin; Z91.018 Allergy to other foods; Z98.890 Other specified postprocedural states
CPT/HCPCS: J2405; J3010; J7030; Q0092

== ENCOUNTER 2020-03-19 07:42 | Emergency (ER) | payer MEDICARE, OTHER ==
[~2020-03-19] VITALS: Ht 165.1 cm; Wt 60.8 kg
[2020-03-19 08:01] VITALS: Ht 165.1 cm; Wt 60.8 kg
[2020-03-19 09:17] LABS: BASOPHIL % 0.1 % (0-2); PLATELET COUNT 241 x10^3mcL (130-400); RED CELL DISTRIBUTION WIDTH 13.8 % (11.5-14.5)
[2020-03-19 09:25] LABS: ALBUMIN 3.9 g/dL (3.4-5.0); ALKALINE PHOSPHATASE 60 U/L (46-116); ALT/SGPT 20 U/L (14-59); AST/SGOT 20 U/L (15-37); BILIRUBIN TOTAL 0.77 mg/dL (0.20-1.00); CARBON DIOXIDE 23.1 mmol/L (21-32); CHLORIDE SERUM 103 mmol/L (98-107); CREATININE SERUM 1.1 mg/dL (0.6-1.0); GLUCOSE SERUM 121 mg/dL (74-106); LIPASE 157 IU/L (73-393); POTASSIUM SERUM 4.1 mmol/L (3.5-5.1); SODIUM SERUM 140 mmol/L (136-145); TOTAL PROTEIN, SERUM 7.4 g/dL (6.4-8.2)
[2020-03-19 10:34] VITALS: BP 136/58
[2020-03-19 10:58] LABS: CALCIUM 9.1 mg/dL (8.5-10.1)
== END 2020-03-19 10:34 | disposition home or self-care (01) ==
LOC: ED 07:42
PROVIDERS: Emergency Medicine
DX: K21.9 Gastro-esophageal reflux disease without esophagitis (principal); I10 Essential (primary) hypertension; Z88.0 Allergy status to penicillin; Z88.6 Allergy status to analgesic agent; Z91.018 Allergy to other foods
CPT/HCPCS: Q0092; Q0162

== ENCOUNTER 2020-06-28 16:31 | Inpatient (IN) | payer OTHER, MEDICARE ==
[~2020-06-28] VITALS: Ht 160 cm; Wt 58.2 kg
[2020-06-28 16:38] VITALS: Ht 160 cm; Wt 58.2 kg
[2020-06-28 17:15] LABS: BASOPHIL % 0.8 % (0-2); PLATELET COUNT 274 x10^3mcL (130-400)
[2020-06-28 17:16] LABS: RED CELL DISTRIBUTION WIDTH 14.7 % (11.5-14.5)
[2020-06-28 17:28] LABS: CALCIUM 9.7 mg/dL (8.5-10.1); CARBON DIOXIDE 24.5 mmol/L (21-32); CHLORIDE SERUM 105 mmol/L (98-107); GLUCOSE SERUM 139 mg/dL (74-106); POTASSIUM SERUM 3.1 mmol/L (3.5-5.1); SODIUM SERUM 135 mmol/L (136-145)
[2020-06-28 17:32] LABS: ALBUMIN 3.9 g/dL (3.4-5.0); ALKALINE PHOSPHATASE 62 U/L (46-116); ALT/SGPT 22 U/L (14-59); AST/SGOT 23 U/L (15-37); BILIRUBIN TOTAL 0.97 mg/dL (0.20-1.00); LIPASE 155 IU/L (73-393); TOTAL PROTEIN, SERUM 7.8 g/dL (6.4-8.2)
[2020-06-28 19:48] LABS: microscopic required? YES; urine erythrocyte 2+ (NEGATIVE)
[2020-06-28 22:00] VITALS: BP 152/64
[2020-06-29 06:44] LABS: CALCIUM 8.4 mg/dL (8.5-10.1); CARBON DIOXIDE 27.6 mmol/L (21-32); CHLORIDE SERUM 111 mmol/L (98-107); GLUCOSE SERUM 97 mg/dL (74-106); SODIUM SERUM 141 mmol/L (136-145)
[2020-06-29 06:52] LABS: BASOPHIL % 0.2 % (0-2); PLATELET COUNT 216 x10^3mcL (130-400); RED CELL DISTRIBUTION WIDTH 14.4 % (11.5-14.5)
[2020-06-29 09:24] VITALS: BP 166/57
[2020-06-29 13:32] VITALS: BP 139/52
[2020-06-29 21:18] VITALS: BP 147/63
[2020-06-30 05:10] VITALS: BP 159/69
[2020-06-30 06:39] LABS: BASOPHIL % 0.2 % (0-2); PLATELET COUNT 197 x10^3mcL (130-400); RED CELL DISTRIBUTION WIDTH 14.2 % (11.5-14.5)
[2020-06-30 06:41] LABS: CARBON DIOXIDE 23.7 mmol/L (21-32); CHLORIDE SERUM 107 mmol/L (98-107); CREATININE SERUM 0.8 mg/dL (0.6-1.0); GLUCOSE SERUM 96 mg/dL (74-106); POTASSIUM SERUM 3.6 mmol/L (3.5-5.1); SODIUM SERUM 141 mmol/L (136-145)
[2020-06-30 08:15] VITALS: BP 167/76
[2020-06-30 11:45] VITALS: BP 163/69
[2020-06-30 16:30] VITALS: BP 143/58; BP 182/89
[2020-06-30 19:48] VITALS: BP 158/69
[2020-07-01 05:13] VITALS: BP 168/65
[2020-07-01 07:40] LABS: BASOPHIL % 0.7 % (0-2); PLATELET COUNT 213 x10^3mcL (130-400); RED CELL DISTRIBUTION WIDTH 13.8 % (11.5-14.5)
[2020-07-01 07:46] LABS: CALCIUM 8.5 mg/dL (8.5-10.1); CHLORIDE SERUM 106 mmol/L (98-107); CREATININE SERUM 0.8 mg/dL (0.6-1.0); GLUCOSE SERUM 94 mg/dL (74-106); POTASSIUM SERUM 3.4 mmol/L (3.5-5.1); SODIUM SERUM 141 mmol/L (136-145)
[2020-07-01 08:12] VITALS: BP 139/47
[2020-07-01 11:20] VITALS: BP 139/47
[2020-07-01 12:24] VITALS: BP 116/62
== END 2020-07-01 14:13 | disposition home or self-care (01) | DRG 247 ==
LOC: ED 16:31 → DU 19:21
PROVIDERS: Emergency Medicine; Surgery; ADMIT Family Medicine; ATTEND Family Medicine
DX: K56.609 Unspecified intestinal obstruction, unspecified as to partial versus complete obstruction (principal); E87.2 Acidosis; K86.2 Cyst of pancreas; E87.1 Hypo-osmolality and hyponatremia; I12.0 Hypertensive chronic kidney disease with stage 5 chronic kidney disease or end stage renal disease; Z88.5 Allergy status to narcotic agent; N18.6 End stage renal disease; E87.6 Hypokalemia; Z88.0 Allergy status to penicillin; Z91.018 Allergy to other foods; I16.1 Hypertensive emergency; K21.9 Gastro-esophageal reflux disease without esophagitis; Z85.41 Personal history of malignant neoplasm of cervix uteri; Z85.038 Personal history of other malignant neoplasm of large intestine; E03.9 Hypothyroidism, unspecified; F41.9 Anxiety disorder, unspecified; Z82.49 Family history of ischemic heart disease and other diseases of the circulatory system; Z82.3 Family history of stroke; F32.9 Major depressive disorder, single episode, unspecified; Z20.828 Contact with and (suspected) exposure to other viral communicable diseases
CPT/HCPCS: C9113; G0378; J0696; J1170; J1885; J2001; J2405; J2765; J3010; J3480; J3490; J7030; J7060; Q0092; Q9967

== ENCOUNTER 2020-11-23 02:53 | Emergency (ER) | payer MEDICARE, OTHER ==
[~2020-11-23] VITALS: Ht 162.6 cm; Wt 68.0 kg
[2020-11-23 03:01] VITALS: Ht 162.6 cm; Wt 68.0 kg
[2020-11-23] MEDS ORDERED: BACTRIM DS1 TAB PO (06:07)
[2020-11-23 08:09] VITALS: BP 148/51
== END 2020-11-23 08:09 | disposition home or self-care (01) ==
LOC: ED 02:53
DX: N39.0 Urinary tract infection, site not specified (principal); I10 Essential (primary) hypertension; Z85.028 Personal history of other malignant neoplasm of stomach; Z87.19 Personal history of other diseases of the digestive system; Z88.0 Allergy status to penicillin; Z88.5 Allergy status to narcotic agent; Z91.018 Allergy to other foods
CPT/HCPCS: J1885